=== PATIENT | female | born 1965 | race American Indian/Alaskan Native ===

== ENCOUNTER 2017-01-11 10:46 | Emergency (ER) | payer OTHER ==
[2017-01-11] MEDS ORDERED: MORPHINE IV ONE (11:38)
[2017-01-11] MEDS ORDERED: ZOFRAN IV ONE (11:38)
[2017-01-11] MEDS ORDERED: BABY ASPIRIN PO ONE (11:45)
--- NOTE | 2017-01-11 11:45 | Emergency Department Report ---
ED Chest Pain HPI - General Chief Complaint: Chest Pain Stated Complaint: CHEST PAIN Time Seen by Provider: 01/11/17 11:30 Source: patient Mode of arrival: Ambulatory Limitations: No Limitations - History of Present Illness Initial Comments: CHEST PAIN AND LEFT LEG SWELLING. H/O BLOOD CLOTS Complaint: chest pain -: Gradual, week(s) (ONE ) Onset: during rest Pain Location: substernal Severity scale (0 -10): 7 Quality: tightness Improves With: nothing Other Symptoms: denies: cough, fever Treatments Prior to Arrival: none - Related Data Home Medications Medication Instructions Recorded Confirmed Last Taken Phenytoin [Dilantin] 300 mg PO QDAY 04/08/16 01/11/17 Unknown Previous Rx's Medication Instructions Recorded Last Taken Type Gabapentin [Gralise] 300 mg PO DAILY #30 tab.er.24h 04/09/16 Unknown Rx Losartan [Cozaar] 100 mg PO QDAY #300 tablet 04/09/16 Unknown Rx carBAMazepine [TEGretol] 300 mg PO QDAY #30 tablet 04/09/16 Unknown Rx Ondansetron [Zofran Odt] 4 mg PO Q8HR PRN #14 tab.rapdis 01/11/17 Unknown Rx traMADol [Ultram] 50 mg PO Q6HR PRN #14 tablet 01/11/17 Unknown Rx Allergies Allergy/AdvReac Type Severity Reaction Status Date / Time Penicillins Allergy Swelling Verified 05/20/13 15:21 Heart Score - HEART Score History: Moderately suspicious EKG: Non-specific Age: 45-65 Risk factors: 1-2 risk factors Troponin: < normal limit HEART Score: 4 - Critical Actions Critical Actions: 4-6 pts:12-16.6% risk of adverse cardiac event. Should be admitted ED Review of Systems ROS: Stated complaint: CHEST PAIN Other details as noted in HPI Comment: All other systems reviewed and negative Constitutional: denies: chills, fever Respiratory: shortness of breath. denies: cough, orthopnea Cardiovascular: chest pain. denies: palpitations Gastrointestinal: abdominal pain. denies: nausea, vomiting Musculoskeletal: arthralgia, myalgia Neurological: denies: headache, weakness, numbness, paresthesias, confusion ED Past Medical Hx - Past Medical History Previous Medical History?: Yes Hx Hypertension: Yes Hx Deep Vein Thrombosis: Yes Hx Seizures: Yes Hx Psychiatric Treatment: Yes Hx COPD: Yes Additional medical history: aneurysm - Surgical History Past Surgical History?: Yes Additional Surgical History: aneurysm clip, hysterectomy - Social History Smoking Status: Unknown if ever smoked Substance Use Type: None - Medications Home Medications: Home Medications Medication Instructions Recorded Confirmed Last Taken Type Phenytoin [Dilantin] 300 mg PO QDAY 04/08/16 01/11/17 Unknown History Gabapentin [Gralise] 300 mg PO DAILY #30 tab.er.24h 04/09/16 01/11/17 Unknown Rx Losartan [Cozaar] 100 mg PO QDAY #300 tablet 04/09/16 01/11/17 Unknown Rx carBAMazepine [TEGretol] 300 mg PO QDAY #30 tablet 04/09/16 01/11/17 Unknown Rx Ondansetron [Zofran Odt] 4 mg PO Q8HR PRN #14 tab.rapdis 01/11/17 Unknown Rx traMADol [Ultram] 50 mg PO Q6HR PRN #14 tablet 01/11/17 Unknown Rx ED Physical Exam - General Limitations: No Limitations General appearance: alert - Head Head exam: Present: atraumatic - Eye Eye exam: Present: normal appearance - ENT ENT exam: Present: normal exam - Neck Neck exam: Present: normal inspection, full ROM. Absent: tenderness, meningismus, lymphadenopathy - Respiratory Respiratory exam: Present: normal lung sounds bilaterally. Absent: rales, rhonchi, stridor, chest wall tenderness, accessory muscle use - Cardiovascular Cardiovascular Exam: Present: regular rate, normal heart sounds - GI/Abdominal GI/Abdominal exam: Present: soft. Absent: distended, tenderness, guarding, rebound - Extremities Exam Extremities exam: Present: normal inspection, full ROM - Back Exam Back exam: Present: normal inspection, full ROM. Absent: tenderness - Neurological Exam Neurological exam: Present: alert, oriented X3, CN II-XII intact, normal gait, reflexes normal. Absent: motor sensory deficit - Psychiatric Psychiatric exam: Present: normal affect, normal mood. Absent: depressed - Skin Skin exam: Present: warm, dry ED Course Vital Signs 01/11/17 01/11/17 01/11/17 11:03 11:55 13:05 Temperature 98.4 F Pulse Rate 79 62 66 Respiratory 20 18 18 Rate Blood Pressure 180/120 Blood Pressure 205/121 181/116 [Left] O2 Sat by Pulse 100 100 100 Oximetry 01/11/17 14:49 Temperature Pulse Rate 60 Respiratory 18 Rate Blood Pressure Blood Pressure 183/103 [Left] O2 Sat by Pulse 97 Oximetry - Reevaluation(s) Reevaluation #1: 01/11/17 16:38 PATIENT IS PAIN FREE. ADVISED TO FOLLOW UP WITH HER PCP IN 2 DAYS ED Medical Decision Making - Lab Data Result diagrams: 01/11/17 12:10 01/11/17 12:10 Critical care attestation.: If time is entered above; I have spent that time in minutes in the direct care of this critically ill patient, excluding procedure time. ED Disposition Clinical Impression: Chest pain, atypical, Left leg pain Disposition: DC- TO HOME OR SELFCARE Is pt being admited?: No Does the pt Need Aspirin: No Condition: Stable Instructions: Chest Pain (ED) Prescriptions: Ondansetron [Zofran Odt] 4 mg PO Q8HR PRN #14 tab.rapdis PRN Reason: Vomiting traMADol [Ultram] 50 mg PO Q6HR PRN #14 tablet PRN Reason: Pain
[2017-01-11] MEDS ORDERED: NACL ONE (12:39)
[2017-01-11 12:42] LABS: Basophils % (Auto) 1.2 % (0.0-1.8); Eosinophils % (Auto) 2.8 % (0.0-4.3); Hematocrit 38.8 % (30.3-42.9); Hemoglobin 11.9 gm/dl (10.1-14.3); Mean Corpuscular HGB Conc 31 % (30-34); Mean Corpuscular Volume 73 fl (79-97); Platelet Count 134 K/mm3 (140-440); Red Blood Count 5.34 M/mm3 (3.65-5.03); Red Cell Distribution Width 16.7 % (13.2-15.2); White Blood Count 5.6 K/mm3 (4.5-11.0)
[2017-01-11 12:43] LABS: Mean Corpuscular Hemoglobin 22 pg (28-32)
[2017-01-11 12:51] LABS: Partial Thromboplastin Time 23.9 Sec. (24.2-36.6)
[2017-01-11 13:14] LABS: Anion Gap 20 mmol/L; BUN/Creatinine Ratio 11.42; Blood Urea Nitrogen 8 mg/dL (7-17); Calcium 8.7 mg/dL (8.4-10.2); Carbon Dioxide 20 mmol/L (22-30); Chloride 102.7 mmol/L (98-107); Glucose 86 mg/dL (65-100); Potassium 4.1 mmol/L (3.6-5.0); Sodium 139 mmol/L (137-145)
--- NOTE | 2017-01-11 14:35 | Cat Scan Report ---
FINAL REPORT PROCEDURE: CT ANGIO CHEST TECHNIQUE: Computerized tomographic angiography of the chest was performed after the IV injection of iodinated nonionic contrast including image processing. The image data was postprocessed using 2-dimensional multiplanar reformatted (MPR) and 3-dimensional (MIP and/or volume rendered) techniques. HISTORY: CHEST PAIN, H/O PE COMPARISON: No prior studies are available for comparison. FINDINGS: Mild hypoventilatory changes are seen in the dependent portions of the lungs. No pleural effusion or pneumothorax is seen. More focal alveolar opacity is seen at the right CP angle laterally with tiny focal calcification. This is likely area of atelectasis with a granuloma. Likely mild reactive lymph nodes are seen in the mediastinum and bilateral jeannie. Mild reactive lymph nodes are suspected in the axillae. Heart is top normal limits in size without pulmonary venous congestion. There is prominence of the ascending thoracic aorta which measures 4.1 cm in its mid ascending section. It tapers in the mid arch to normal diameter. It is not well enhanced due to timing of contrast bolus. No pulmonary embolus is seen. There is a 2.7 cm left adrenal lesion that measures 0 Hounsfield units. This could be a solid lesion or possibly a cyst. Correlation with MRI is recommended. 6 millimeter low-density lesion in the right hepatic lobe is probably a cyst. There is cholelithiasis. IMPRESSION: There is mild dilation of the ascending thoracic aorta to 4.1 cm in diameter No pulmonary embolus is seen. Heart is top normal limits in size. There is a 2.7 cm left adrenal lesion that measures 0 Hounsfield units. This could be a solid lesion or possibly a cyst. Correlation with MRI is recommended. Likely mild reactive lymph nodes are seen in the mediastinum, jeannie, and axillae.
[2017-01-11 15:54] LABS: Bacteria,Urine 1+ /HPF (Negative); Bilirubin,Urine NEG (Negative); Blood,Urine NEG (Negative); Ketones,Urine NEG (Negative); Leukocyte Esterase,Urine NEG (Negative); Mucus,Urine 1+ /HPF; Nitrite,Urine NEG (Negative); Protein,Urine <15 mg/dL mg/dL (Negative); WBC,Urine < 1.0 /HPF (0.0-6.0)
[2017-01-11 16:41] LABS: Alanine Aminotransferase 14 units/L (7-56); Albumin/Globulin Ratio 1.3 %; Alkaline Phosphatase 76 units/L (35-129); Total Protein 7.2 g/dL (6.3-8.2)
[2017-01-11 16:42] LABS: Bilirubin,Direct < 0.2 mg/dL (0-0.2); Bilirubin,Indirect 0.3 mg/dL
[2017-01-11 17:01] VITALS: BP 160/100
--- NOTE | 2017-01-12 08:30 | Vascular Lab Report ---
Left Lower Extremity Venous Duplex Study: Reason for Exam: Pain and swelling of the left lower extremity. Comments on the Right: A limited duplex study was done of the proximal veins of the right lower extremity. All veins visualized are freely compressible without evidence of internal echogenicity. Flow is spontaneous and phasic throughout. No evidence of acute or chronic thrombus is seen in any of the vessels visualized. Comments on the Left: All deep veins visualized are freely compressible without evidence of internal echogenicity. Flow is spontaneous and phasic throughout. No evidence of acute or chronic thrombus is seen in any of the vessels visualized. Nonocclusive chronic superficial thrombophlebitis noted in the greater saphenous vein. Impression: No evidence of acute or chronic deep venous thrombosis in the left lower extremity. Chronic superficial thrombophlebitis in the left lower extremity.
== END 2017-01-11 17:00 | disposition home or self-care (01) ==
LOC: ED 10:46
DX: R07.89 Other chest pain (principal); M79.605 Pain in left leg; I10 Essential (primary) hypertension; I82.409 Acute embolism and thrombosis of unspecified deep veins of unspecified lower extremity; R56.9 Unspecified convulsions; J44.9 Chronic obstructive pulmonary disease, unspecified; Z88.0 Allergy status to penicillin
CPT/HCPCS: 36415; 71275; 80048; 80074; 81001; 83880; 84484; 85025; 85379; 85610; 85730; 93005; 93010; 93971; 96374; 96375; 99285; J2270; J2405; Q9967

== ENCOUNTER 2017-02-21 10:45 | Emergency (ER) | payer OTHER ==
[2017-02-21] MEDS ORDERED: DUONEB *Not for PRN Use IH ONE ×2 (11:03→11:05)
[2017-02-21 11:36] LABS: Basophils % (Auto) 1.7 % (0.0-1.8); Eosinophils % (Auto) 4.8 % (0.0-4.3); Hematocrit 38.1 % (30.3-42.9); Mean Corpuscular HGB Conc 32 % (30-34); Mean Corpuscular Volume 72 fl (79-97); Platelet Count 129 K/mm3 (140-440); Red Blood Count 5.28 M/mm3 (3.65-5.03); Red Cell Distribution Width 16.2 % (13.2-15.2); White Blood Count 5.3 K/mm3 (4.5-11.0)
[2017-02-21 11:47] LABS: Anion Gap 18 mmol/L; Blood Urea Nitrogen 9 mg/dL (7-17); Calcium 8.6 mg/dL (8.4-10.2); Carbon Dioxide 22 mmol/L (22-30); Chloride 105.2 mmol/L (98-107); Glucose 93 mg/dL (65-100); Sodium 141 mmol/L (137-145)
[2017-02-21 11:54] LABS: Mean Corpuscular Hemoglobin 23 pg (28-32)
[2017-02-21] MEDS ORDERED: MAGNESIUM SULFATE 2GM/50ML 2 GM/50 ML BAG IV ONE (12:50)
[2017-02-21] MEDS ORDERED: ATROVENT IH ONE (12:50)
[2017-02-21] MEDS ORDERED: TESSALON PERLES PO ONE ×3 (12:50→17:11)
[2017-02-21] MEDS ORDERED: NORCO 5/325 PO ONE (12:50)
[2017-02-21] MEDS ORDERED: PROVENTIL IH ONE (12:50)
[2017-02-21] MEDS ORDERED: CATAPRES PO ONE (12:50)
--- NOTE | 2017-02-21 13:12 | XRay Report ---
CHEST TWO VIEWS: 02/21/17 11:25 CLINICAL: Shortness of breath. COMPARISON: 04/08/16 FINDINGS: Normal heart and pulmonary vasculature. The lungs are normally expanded and clear. The bones and soft tissues are normal. IMPRESSION: Normal chest.
[2017-02-21] MEDS ORDERED: KEPPRA 1,000 MG/NS 0.75% 100ML 1,000 MG/100 ML BAG IV ONE (14:00)
[2017-02-21] MEDS ORDERED: KEPPRA 1,000 MG/NS 0.75% 100ML 0 MG/0 ML BAG IV ONE (14:15)
--- NOTE | 2017-02-21 15:21 | Emergency Department Report ---
ED Shortness of Breath HPI - General Chief Complaint: Adult Asthma Stated Complaint: CHEST PAIN/BODYACHE/ASTHMA Time Seen by Provider: 02/21/17 12:44 Source: patient Mode of arrival: Ambulatory Limitations: No Limitations - History of Present Illness Initial Comments: 51 yo female with a past medical history of COPD (no home o2), previous DVT (no anticoagulation currently), hypertension, seizures, and previous cerebral aneurysm presents also complains of shortness of breath 3 days. Patient had a shortness of breath, wheezing, cough productive of thick brown sputum. Positive associated 8/10 chest tightness.. Patient denies fever but states she has been sweating more. Noncompliant with her blood pressure medication for at least one month because she has missed her doctor's appointments. - Related Data Previous Rx's Medication Instructions Recorded Last Taken Type Ondansetron [Zofran Odt] 4 mg PO Q8HR PRN #14 tab.rapdis 01/11/17 Unknown Rx traMADol [Ultram] 50 mg PO Q6HR PRN #14 tablet 01/11/17 Unknown Rx ALBUTEROL Inhaler [ProAir HFA 2 puff IH QID PRN #1 inhalation 02/21/17 Unknown Rx Inhaler] Azithromycin [Zithromax Z-GARCIA] 1 dose PO DAILY 5 Days 02/21/17 Unknown Rx Benzonatate [Tessalon Perles] 100 mg PO Q8HR PRN #30 capsule 02/21/17 Unknown Rx Gabapentin [Gralise] 300 mg PO DAILY #30 tab.er.24h 02/21/17 Unknown Rx Losartan [Cozaar] 100 mg PO QDAY #300 tablet 02/21/17 Unknown Rx Phenytoin [Dilantin] 300 mg PO QDAY #90 capsule.er 02/21/17 Unknown Rx Prednisone [predniSONE 10 mg 10 mg PO .TAPER #1 tab.ds.pk 02/21/17 Unknown Rx (6-Day Pack, 21 Tabs)] carBAMazepine [TEGretol] 300 mg PO QDAY #30 tablet 02/21/17 Unknown Rx Allergies Allergy/AdvReac Type Severity Reaction Status Date / Time Penicillins Allergy Swelling Verified 05/20/13 15:21 ED Review of Systems ROS: Stated complaint: CHEST PAIN/BODYACHE/ASTHMA Other details as noted in HPI Comment: All other systems reviewed and negative Other: Constitutional: No fevers chills Eyes: No eye pain visual changes ENT: No ear pain or throat pain Neck: Denies pain Respiratory: As per HPI Cardiovascular: Denies palpitations, syncope GI: Denies abdominal pain, nausea, vomiting, diarrhea : Denies dysuria Musculoskeletal: Denies back pain, joint swelling Skin: Denies rash, lesions, erythema Neurologic: Denies headache, numbness, weakness Psychiatric: Denies suicidal ideation, hallucinations ED Past Medical Hx - Past Medical History Previous Medical History?: Yes Hx Hypertension: Yes Hx Deep Vein Thrombosis: Yes Hx Seizures: Yes Hx Psychiatric Treatment: Yes Hx COPD: Yes Additional medical history: aneurysm - Surgical History Past Surgical History?: Yes Additional Surgical History: aneurysm clip, hysterectomy - Social History Smoking Status: Current Every Day Smoker Substance Use Type: Alcohol - Medications Home Medications: Home Medications Medication Instructions Recorded Confirmed Last Taken Type Ondansetron [Zofran Odt] 4 mg PO Q8HR PRN #14 tab.rapdis 01/11/17 Unknown Rx traMADol [Ultram] 50 mg PO Q6HR PRN #14 tablet 01/11/17 Unknown Rx ALBUTEROL Inhaler [ProAir HFA 2 puff IH QID PRN #1 inhalation 02/21/17 Unknown Rx Inhaler] Azithromycin [Zithromax Z-GARCIA] 1 dose PO DAILY 5 Days 02/21/17 Unknown Rx Benzonatate [Tessalon Perles] 100 mg PO Q8HR PRN #30 capsule 02/21/17 Unknown Rx Gabapentin [Gralise] 300 mg PO DAILY #30 tab.er.24h 02/21/17 Unknown Rx Losartan [Cozaar] 100 mg PO QDAY #300 tablet 02/21/17 Unknown Rx Phenytoin [Dilantin] 300 mg PO QDAY #90 capsule.er 02/21/17 Unknown Rx Prednisone [predniSONE 10 mg 10 mg PO .TAPER #1 tab.ds.pk 02/21/17 Unknown Rx (6-Day Pack, 21 Tabs)] carBAMazepine [TEGretol] 300 mg PO QDAY #30 tablet 02/21/17 Unknown Rx ED Physical Exam - General Limitations: No Limitations - Other Other exam information: General: No limitations, patient is alert in no acute distress Head exam: Atraumatic, normocephalic Eyes exam: Normal appearance ENT: Moist mucous membrane, normal oropharynx Neck exam: Normal inspection, full range of motion, no meningismus nontender Respiratory exam: Bilateral exudative wheezing, mild tachypnea and accessory muscle use Cardiovascular: Normal rate and rhythm, normal heart sounds Abdomen: Soft, nondistended, and nontender, with normal bowel sounds, no rebound, or guarding Extremity: Full range of motion normal inspection no deformity, tenderness or edema Back: Normal Inspection, full range of motion, no tenderness Neurologic: Alert, oriented x3, cranial nerves intact, no motor or sensory deficit Psychiatric: normal affect, normal mood Skin: Warm, dry, intact ED Course Vital Signs 02/21/17 02/21/17 02/21/17 10:57 11:07 12:31 Temperature 98.5 F 98.5 F Pulse Rate 74 74 Pulse Rate [ Anterior Bilateral Throughout] Pulse Rate [ 74 Posterior Bilateral Throughout] Respiratory 30 H 26 H Rate Respiratory Rate [Anterior Bilateral Throughout] Respiratory 24 Rate [Posterior Bilateral Throughout] Blood Pressure 161/130 Blood Pressure 185/117 [Left] O2 Sat by Pulse 100 Oximetry 02/21/17 02/21/17 02/21/17 12:34 12:55 13:40 Temperature Pulse Rate 76 Pulse Rate [ 76 Anterior Bilateral Throughout] Pulse Rate [ Posterior Bilateral Throughout] Respiratory Rate Respiratory 18 Rate [Anterior Bilateral Throughout] Respiratory Rate [Posterior Bilateral Throughout] Blood Pressure 187/95 Blood Pressure [Left] O2 Sat by Pulse 99 Oximetry 02/21/17 13:55 Temperature Pulse Rate Pulse Rate [ Anterior Bilateral Throughout] Pulse Rate [ 71 Posterior Bilateral Throughout] Respiratory Rate Respiratory Rate [Anterior Bilateral Throughout] Respiratory 18 Rate [Posterior Bilateral Throughout] Blood Pressure Blood Pressure [Left] O2 Sat by Pulse Oximetry - Reevaluation(s) Reevaluation #1: 02/21/17 14:00 Patient's had a seizure in the ED. Dilantin level ordered. Keppra initiated while awaiting results Reevaluation #2: 02/21/17 15:26 Dilantin ordered since level is sub-therapeutic Reevaluation #3: 02/21/17 15:55 Patient is awake. She feels better. Lungs are clear. Room air saturation 100% . Patient requesting food.Instructed the patient. She admits to be noncompliant with all her medications including seizure medication. She'll be loaded with Dilantin prior to discharge ED Medical Decision Making - Lab Data Result diagrams: 02/21/17 11:14 02/21/17 11:14 Lab Results 02/21/17 02/21/17 02/21/17 Range/Units 11:08 11:14 11:14 WBC 5.3 (4.5-11.0) K/mm3 RBC 5.28 H (3.65-5.03) M/mm3 Hgb 12.0 (10.1-14.3) gm/dl Hct 38.1 (30.3-42.9) % MCV 72 L (79-97) fl MCH 23 L (28-32) pg MCHC 32 (30-34) % RDW 16.2 H (13.2-15.2) % Plt Count 129 L (140-440) K/mm3 Lymph % (Auto) 44.2 H (13.4-35.0) % Pope % (Auto) 11.1 H (0.0-7.3) % Eos % (Auto) 4.8 H (0.0-4.3) % Baso % (Auto) 1.7 (0.0-1.8) % Lymph # 2.3 (1.2-5.4) K/mm3 Pope # 0.6 (0.0-0.8) K/mm3 Eos # 0.3 (0.0-0.4) K/mm3 Baso # 0.1 (0.0-0.1) K/mm3 Seg Neutrophils % 38.2 L (40.0-70.0) % Seg Neutrophils # 2.0 (1.8-7.7) K/mm3 Sodium 141 (137-145) mmol/L Potassium 4.0 (3.6-5.0) mmol/L Chloride 105.2 (98-107) mmol/L Carbon Dioxide 22 (22-30) mmol/L Anion Gap 18 mmol/L BUN 9 (7-17) mg/dL Creatinine 0.6 L (0.7-1.2) mg/dL Estimated GFR > 60 ml/min BUN/Creatinine Ratio 15.00 % Glucose 93 (65-100) mg/dL POC Glucose 74 (70-105) Calcium 8.6 (8.4-10.2) mg/dL Troponin T < 0.010 (0.00-0.029) ng/mL Phenytoin (10.0-20.0) mg/L 02/21/17 Range/Units 14:13 WBC (4.5-11.0) K/mm3 RBC (3.65-5.03) M/mm3 Hgb (10.1-14.3) gm/dl Hct (30.3-42.9) % MCV (79-97) fl MCH (28-32) pg MCHC (30-34) % RDW (13.2-15.2) % Plt Count (140-440) K/mm3 Lymph % (Auto) (13.4-35.0) % Pope % (Auto) (0.0-7.3) % Eos % (Auto) (0.0-4.3) % Baso % (Auto) (0.0-1.8) % Lymph # (1.2-5.4) K/mm3 Pope # (0.0-0.8) K/mm3 Eos # (0.0-0.4) K/mm3 Baso # (0.0-0.1) K/mm3 Seg Neutrophils % (40.0-70.0) % Seg Neutrophils # (1.8-7.7) K/mm3 Sodium (137-145) mmol/L Potassium (3.6-5.0) mmol/L Chloride (98-107) mmol/L Carbon Dioxide (22-30) mmol/L Anion Gap mmol/L BUN (7-17) mg/dL Creatinine (0.7-1.2) mg/dL Estimated GFR ml/min BUN/Creatinine Ratio % Glucose (65-100) mg/dL POC Glucose (70-105) Calcium (8.4-10.2) mg/dL Troponin T (0.00-0.029) ng/mL Phenytoin 0.8 L (10.0-20.0) mg/L - EKG Data -: EKG Interpreted by Me (sinus rhythm 74 lateral T inversion) - EKG Data When compared to previous EKG there are: no significant change (compared to ) - Radiology Data Radiology results: report reviewed (chest ray: No acute findings) - Medical Decision Making Hypertension: Patient received clonidine with improvement. Patient has been noncompliant Seizure: IV Keppra and IV Dilantin. Patient has been noncompliant COPD exacerbation: Albuterol, Atrovent, same measure, and magnesium. Tessalon Perles for cough and azithromycin, Z-Garcia prescribed Meds to be refill, follow-up encouraged - Differential Diagnosis pneumonia, bronchitis, asthma, COPD, hypertensive emergency, medication com Critical Care Time: No Critical care attestation.: If time is entered above; I have spent that time in minutes in the direct care of this critically ill patient, excluding procedure time. ED Disposition Clinical Impression: COPD with acute bronchitis, Hypertension, uncontrolled, Seizure, Noncompliance with medication regimen Disposition: TO HOME OR SELFCARE Is pt being admited?: No Does the pt Need Aspirin: No Condition: Stable Instructions: Acute Bronchitis (ED), Hypertension (ED), Recurrent Seizures Adult (ED) Additional Instructions: Take the medications as prescribed. Follow-up with your primary care doctor. Return if symptoms worsen Prescriptions: ALBUTEROL Inhaler [ProAir HFA Inhaler] 2 puff IH QID PRN #1 inhalation PRN Reason: Shortness Of Breath Azithromycin [Zithromax Z-GARCIA] 1 dose PO DAILY 5 Days Benzonatate [Tessalon Perles] 100 mg PO Q8HR PRN #30 capsule PRN Reason: Cough carBAMazepine [TEGretol] 300 mg PO QDAY #30 tablet Gabapentin [Gralise] 300 mg PO DAILY #30 tab.er.24h Losartan [Cozaar] 100 mg PO QDAY #300 tablet Phenytoin [Dilantin] 300 mg PO QDAY #90 capsule.er Prednisone [predniSONE 10 mg (6-Day Pack, 21 Tabs)] 10 mg PO .TAPER #1 tab.ds.pk Referrals: PRIMARY CARE,MD [Primary Care Provider] - 3-5 Days Time of Disposition: 15:59 (d/c after dilantin)
[2017-02-21] MEDS ORDERED: DILANTIN 1,000 MG in NACL 0.9% 250ML 250 ML IV ONE (16:00)
[2017-02-21 16:20] VITALS: BP 154/95
[2017-02-21] MEDS ORDERED: NACL 0.9% 100 ML ONE (16:26)
[2017-02-21] MEDS ORDERED: DILANTIN PO ONE (16:50)
== END 2017-02-21 17:30 | disposition home or self-care (01) ==
LOC: ED 10:45
DX: J44.9 Chronic obstructive pulmonary disease, unspecified (principal); J20.9 Acute bronchitis, unspecified; I10 Essential (primary) hypertension; R56.9 Unspecified convulsions; Z91.14 Patient's other noncompliance with medication regimen; F17.200 Nicotine dependence, unspecified, uncomplicated
CPT/HCPCS: 36415; 71020; 80048; 80185; 82962; 84484; 85025; 93005; 93010; 94640; 96365; 96367; 96375; 99284; J1165; J1953; J2930; J3475; J7050

== ENCOUNTER 2017-05-26 10:04 | Inpatient (IN) | payer OTHER ==
--- NOTE | 2017-05-26 10:48 | Emergency Department Report ---
Chief Complaint: Chest Pain Stated Complaint: CHEST TIGHTNESS Time Seen by Provider: 05/26/17 10:47 - HPI History of Present Illness: Patient reported that she's been having chest tightness and body ache 4 days. Patient report wheezing and with shortness of breath. She states that she did nebulizer treatment at home without any relief. Patient has a history of asthma ,COPD, DVT, hypertension mental health disorder and seizures also has medical history of aneurysm. She said her chest feels tight it is 4 out of 10 she is complaining of coughing and the pain is worse with coughing. Denies any history of heart disease. - ROS Review of Systems: All systems are negative unless stated in HPI above - Exam Vital Signs: Vital Signs 05/26/17 10:18 Temperature 98.7 F Pulse Rate 97 H Respiratory 24 Rate Blood Pressure 151/90 O2 Sat by Pulse 98 Oximetry Physical Exam: Gen.: This is a 52-year-old female well-nourished well-developed nontoxic in appearance. Lungs:congested cough, positive rhonchi to lung harris that clear with coughing. Inspiratory and expiratory wheezing. Normal work of breathing Extremity: No clubbing, cyanosis or edema. CV: S1, S2. Regular rate rhythm negative murmur MSE screening note: Focused history and physical exam performed. Due to findings the following was ordered: ED Medical Decision Making - Medical Decision Making MDM: Patient screened by provider in triage area. Appropriate protocol initiated and patient to be seen in main ED by ED Disposition for MSE Condition: Stable
[2017-05-26 11:08] LABS: Basophils % (Auto) 1.6 % (0.0-1.8); Eosinophils % (Auto) 4.6 % (0.0-4.3); Hematocrit 39.2 % (30.3-42.9); Hemoglobin 12.3 gm/dl (10.1-14.3); Mean Corpuscular HGB Conc 31 % (30-34); Mean Corpuscular Volume 73 fl (79-97); Platelet Count 146 K/mm3 (140-440); Red Blood Count 5.41 M/mm3 (3.65-5.03); Red Cell Distribution Width 15.7 % (13.2-15.2); White Blood Count 6.2 K/mm3 (4.5-11.0)
[2017-05-26 11:16] LABS: Mean Corpuscular Hemoglobin 23 pg (28-32)
[2017-05-26 11:17] LABS: Anion Gap 19 mmol/L; BUN/Creatinine Ratio 13; Blood Urea Nitrogen 8 mg/dL (7-17); Calcium 8.7 mg/dL (8.4-10.2); Carbon Dioxide 24 mmol/L (22-30); Chloride 106.4 mmol/L (98-107); Glucose 78 mg/dL (65-100); Sodium 145 mmol/L (137-145)
[2017-05-26 11:35] LABS: Partial Thromboplastin Time 24.2 Sec. (24.2-36.6)
[2017-05-26 11:50] LABS: Creatine Kinase MB 9.1 ng/mL (0.0-4.0)
--- NOTE | 2017-05-26 11:57 | Cat Scan Report ---
Cranial CT without contrast. History: Acute stroke protocol/ Weakness. Findings: Comparison is made to previous study performed on April 08, 2016. There is a subcentimeter hypodensity in the head of the caudate nucleus on the right. This is best seen on image #22 of series 2. There is no associated hemorrhage. A metallic density, probably representing an aneurysm clip is seen in the right parasellar region with associated streak artifact. Postsurgical changes in the right calvarium are stable. There are no masses or extra-axial collections. The posterior fossa is unremarkable. The ventricles are normal. Impression: 1. Subcentimeter hypodensity in the right head of the caudate nucleus. This has similar density to CSF and may be chronic. It is difficult to exclude an acute or subacute lacunar infarct. Clinical correlation is advised. 2. Stable postsurgical changes as described. Comment: These findings were given by phone to Dr. Bhatti at 11:55 AM on May 26.
--- NOTE | 2017-05-26 12:32 | Emergency Department Report ---
ED General Adult HPI - General Chief complaint: Chest Pain Stated complaint: CHEST TIGHTNESS Time Seen by Provider: 05/26/17 10:47 Source: patient Mode of arrival: Ambulatory Limitations: No Limitations - History of Present Illness Initial comments: Patient presented to triage with a history of "chest tightness and body aches 4 days. She was wheezing and on my encounter stated that she is using her home inhalers without benefit. She has history of asthma/COPD. Apparently, she was somehow confused on arrival and a code stroke was called. In addition a mental health counselor was called as patient perhaps wasn't acting right. On my counter the mental health counselor was in the room. She stated that she felt the patient did not have any addressable mental health issues. I agree the patient has presented for medical complaints. In any case there is no evidence for an acute stroke workup continued. Patient was apparently wheezing and nebs and steroids and magnesium was ordered. -: week(s) Location: chest Radiation: non-radiation Quality: other Consistency: intermittent Improves with: none Worsens with: none Associated Symptoms: other (tightness associated with wheezing) Treatments Prior to Arrival: none - Related Data Home Medications Medication Instructions Recorded Confirmed Last Taken Acetaminophen with Codeine 1 each PO Q6HR PRN 05/26/17 05/26/17 Unknown [Acetaminophen-Codeine #2 TAB] Hydrochlorothiazide [HCTZ] 25 mg PO QDAY 05/26/17 05/26/17 Unknown amLODIPine [Norvasc] 5 mg PO DAILY 05/26/17 05/26/17 Unknown tiZANidine [Zanaflex] 4 mg PO TID PRN 05/26/17 05/26/17 Unknown Previous Rx's Medication Instructions Recorded Last Taken Type ALBUTEROL Inhaler [ProAir HFA 2 puff IH QID PRN #1 inhalation 02/21/17 Unknown Rx Inhaler] Phenytoin [Dilantin] 300 mg PO QDAY #90 capsule.er 02/21/17 Unknown Rx Allergies Allergy/AdvReac Type Severity Reaction Status Date / Time Penicillins Allergy Swelling Verified 05/20/13 15:21 ED Review of Systems ROS: Stated complaint: CHEST TIGHTNESS Other details as noted in HPI Constitutional: denies: chills, fever Eyes: denies: eye pain, eye discharge, vision change ENT: denies: ear pain, throat pain Respiratory: cough (nonproductive), shortness of breath, wheezing Cardiovascular: as per HPI, chest pain. denies: palpitations Endocrine: no symptoms reported Gastrointestinal: denies: abdominal pain, nausea, diarrhea Genitourinary: denies: urgency, dysuria, discharge Musculoskeletal: denies: back pain, joint swelling, arthralgia Skin: denies: rash, lesions Neurological: denies: headache, weakness, paresthesias Psychiatric: denies: anxiety, depression Hematological/Lymphatic: denies: easy bleeding, easy bruising ED Past Medical Hx - Past Medical History Previous Medical History?: Yes Hx Hypertension: Yes Hx Deep Vein Thrombosis: Yes Hx Seizures: Yes Hx Psychiatric Treatment: Yes Hx COPD: Yes Additional medical history: aneurysm - Surgical History Past Surgical History?: Yes Additional Surgical History: aneurysm clip, hysterectomy - Social History Smoking Status: Current Every Day Smoker Substance Use Type: None - Medications Home Medications: Home Medications Medication Instructions Recorded Confirmed Last Taken Type ALBUTEROL Inhaler [ProAir HFA 2 puff IH QID PRN #1 inhalation 02/21/17 05/26/17 Unknown Rx Inhaler] Phenytoin [Dilantin] 300 mg PO QDAY #90 capsule.er 02/21/17 05/26/17 Unknown Rx Acetaminophen with Codeine 1 each PO Q6HR PRN 05/26/17 05/26/17 Unknown History [Acetaminophen-Codeine #2 TAB] Hydrochlorothiazide [HCTZ] 25 mg PO QDAY 05/26/17 05/26/17 Unknown History amLODIPine [Norvasc] 5 mg PO DAILY 05/26/17 05/26/17 Unknown History tiZANidine [Zanaflex] 4 mg PO TID PRN 05/26/17 05/26/17 Unknown History ED Physical Exam - General Limitations: No Limitations General appearance: alert, in no apparent distress - Head Head exam: Present: atraumatic, normocephalic - Eye Eye exam: Present: normal appearance, PERRL, EOMI. Absent: scleral icterus - ENT ENT exam: Present: mucous membranes moist - Neck Neck exam: Present: normal inspection. Absent: tenderness, meningismus - Respiratory Respiratory exam: Present: wheezes (bilateral 1-2+). Absent: respiratory distress, accessory muscle use - Cardiovascular Cardiovascular Exam: Present: regular rate, normal rhythm. Absent: systolic murmur, diastolic murmur, rubs, gallop - GI/Abdominal GI/Abdominal exam: Present: soft, normal bowel sounds. Absent: distended, tenderness, guarding, rebound, rigid - Extremities Exam Extremities exam: Present: normal inspection - Back Exam Back exam: Present: normal inspection - Neurological Exam Neurological exam: Present: alert, oriented X3, CN II-XII intact, other (acute focal deficit). Absent: motor sensory deficit - Psychiatric Psychiatric exam: Present: normal mood, flat affect - Skin Skin exam: Present: warm, dry, intact, normal color. Absent: rash ED Course Vital Signs 05/26/17 05/26/17 10:18 12:00 Temperature 98.7 F Pulse Rate 97 H 70 Respiratory 24 19 Rate Blood Pressure 151/90 177/120 O2 Sat by Pulse 98 100 Oximetry - Reevaluation(s) Reevaluation #1: The patient was given nebs with improvement. Arterial blood gas was ordered but she refused this. Her CT head showed nothing acute. She has previous aneurysm clip. She has not had an elevated d-dimer. CTA was ordered. There was a problem with her IV access initially and she was sent back from radiology. A new line was placed that was fully functional. She was sent back to CT. However at CT she refused the exam because she stated that the contrast made her feel funny. I reported the presentation of the patient to Dr. Luciano of [place]. He agreed the patient needed to be admitted. He stated that [facility] did not have beds and authorized admission to this facility. I discussed case with Dr. Bowling. I'm going to leave it to his discretion to continue the workup for the elevated d- dimer with a VQ scan or as he deems appropriate. I'm going to hold off on anticoagulation as the patient had previous aneurysm clipping. While in. Anticoagulation may be appropriate leave that to Dr. Bowling's discretion. 05/26/17 17:28 ED Medical Decision Making - Lab Data Result diagrams: 05/26/17 10:25 05/26/17 10:25 Laboratory Results - last 24 hr 05/26/17 05/26/17 05/26/17 10:25 10:25 10:25 WBC 6.2 RBC 5.41 H Hgb 12.3 Hct 39.2 MCV 73 L MCH 23 L MCHC 31 RDW 15.7 H Plt Count 146 Lymph % (Auto) 46.5 H Harper % (Auto) 9.0 H Eos % (Auto) 4.6 H Baso % (Auto) 1.6 Lymph # 2.9 Harper # 0.6 Eos # 0.3 Baso # 0.1 Seg Neutrophils % 38.3 L Seg Neutrophils # 2.4 PT INR APTT D-Dimer Sodium 145 Potassium 4.0 Chloride 106.4 Carbon Dioxide 24 Anion Gap 19 BUN 8 Creatinine 0.6 L Estimated GFR > 60 BUN/Creatinine Ratio 13 Glucose 78 POC Glucose Calcium 8.7 Total Creatine Kinase 336 H CK-MB (CK-2) 9.1 H CK-MB (CK-2) Rel Index 2.7 Troponin T 0.017 05/26/17 05/26/17 11:04 11:28 WBC RBC Hgb Hct MCV MCH MCHC RDW Plt Count Lymph % (Auto) [place] % (Auto) Eos % (Auto) Baso % (Auto) Lymph # Harper # Eos # Baso # Seg Neutrophils % Seg Neutrophils # PT 13.7 INR 1.00 APTT 24.2 D-Dimer 971.71 H Sodium Potassium Chloride Carbon Dioxide Anion Gap BUN Creatinine Estimated GFR BUN/Creatinine Ratio Glucose POC Glucose 86 Calcium Total Creatine Kinase CK-MB (CK-2) CK-MB (CK-2) Rel Index Troponin T Laboratory Results - last 24 hr 05/26/17 05/26/17 05/26/17 10:25 10:25 10:25 WBC 6.2 RBC 5.41 H Hgb 12.3 Hct 39.2 MCV 73 L MCH 23 L MCHC 31 RDW 15.7 H Plt Count 146 Lymph % (Auto) 46.5 H Harper % (Auto) 9.0 H Eos % (Auto) 4.6 H Baso % (Auto) 1.6 Lymph # 2.9 Harper # 0.6 Eos # 0.3 Baso # 0.1 Seg Neutrophils % 38.3 L Seg Neutrophils # 2.4 PT INR APTT D-Dimer Sodium 145 Potassium 4.0 Chloride 106.4 Carbon Dioxide 24 Anion Gap 19 BUN 8 Creatinine 0.6 L Estimated GFR > 60 BUN/Creatinine Ratio 13 Glucose 78 POC Glucose Calcium 8.7 Total Creatine Kinase 336 H CK-MB (CK-2) 9.1 H CK-MB (CK-2) Rel Index 2.7 Troponin T 0.017 05/26/17 05/26/17 11:04 11:28 WBC RBC Hgb Hct MCV MCH MCHC RDW Plt Count Lymph % (Auto) Harper % (Auto) Eos % (Auto) Baso % (Auto) Lymph # Harper # Eos # Baso # Seg Neutrophils % Seg Neutrophils # PT 13.7 INR 1.00 APTT 24.2 D-Dimer 971.71 H Sodium Potassium Chloride Carbon Dioxide Anion Gap BUN Creatinine Estimated GFR BUN/Creatinine Ratio Glucose POC Glucose 86 Calcium Total Creatine Kinase CK-MB (CK-2) CK-MB (CK-2) Rel Index Troponin T Critical care attestation.: If time is entered above; I have spent that time in minutes in the direct care of this critically ill patient, excluding procedure time. ED Disposition Clinical Impression: COPD exacerbation, Elevated d-dimer Chest pain Qualifiers: Chest pain type: unspecified Qualified Code(s): R07.9 - Chest pain, unspecified Disposition: -09 OP ADMIT IP TO THIS HOSP Is pt being admited?: Yes Does the pt Need Aspirin: Yes Condition: Stable Instructions: Chest Pain (ED), Chronic Bronchitis (ED) Referrals: PRIMARY CARE, [Primary Care Provider] - 3-5 Days Time of Disposition: 17:36
--- NOTE | 2017-05-26 12:37 | XRay Report ---
XRAY CHEST TWO VIEWS: 05/26/17 10:04:00 CLINICAL: Cough and chest pain. COMPARISON: 02/21/17 FINDINGS: Normal heart and pulmonary vasculature. Mild bibasal subsegmental atelectasis. The lungs are otherwise clear.The bones and soft tissues are unremarkable. IMPRESSION: Mild bibasal subsegmental atelectasis.No CHF or pneumonia.
[2017-05-26] MEDS ORDERED: DUONEB *Not for PRN Use IH ONE (12:40)
[2017-05-26] MEDS ORDERED: MAGNESIUM SULFATE 2GM/50ML 2 GM/50 ML BAG IV ONE (12:41)
[2017-05-26] MEDS ORDERED: LEVAQUIN 750MG/150ML 750 MG/150 ML BAG IV ONE (12:43)
[2017-05-26 13:30] LABS: Partial Thromboplastin Time 24.7 Sec. (24.2-36.6)
[2017-05-26 13:43] LABS: Alanine Aminotransferase 17 units/L (7-56); Albumin 3.6 g/dL (3.9-5); Albumin/Globulin Ratio 1.1 %; Alkaline Phosphatase 63 units/L (35-129); Total Protein 6.8 g/dL (6.3-8.2)
[2017-05-26] MEDS ORDERED: NACL ONE (13:43)
[2017-05-26 13:44] LABS: Bilirubin,Direct < 0.2 mg/dL (0-0.2); Bilirubin,Indirect 0.1 mg/dL
[2017-05-26 13:49] LABS: Urine Drugs of Abuse Note Disclamer
[2017-05-26 14:14] LABS: Bilirubin,Urine NEG (Negative); Blood,Urine NEG (Negative); Ketones,Urine NEG (Negative); Leukocyte Esterase,Urine NEG (Negative); Mucus,Urine 3+ /HPF; Nitrite,Urine NEG (Negative); Protein,Urine <15 mg/dL mg/dL (Negative); WBC,Urine < 1.0 /HPF (0.0-6.0)
[2017-05-26] MEDS ORDERED: BABY ASPIRIN PO ONE (17:36)
--- NOTE | 2017-05-26 18:02 | History and Physical Report ---
History of Present Illness Chief complaint: Chest pain, I cant breathe History of present illness: 52 YO Female with HTN, DVT, Seizure Disorder, Nicotine Dependence, COPD presents to ED for evaluation. Pt states that she has experienced pain in her chest, shortness of breath, and body aches over the past 4 days with worsening symptoms over the past 2 days. Pt state that pain is 2-5/10, intermittent, associated with shortness of breath and coughing, worse with deep breathing. Pt states that she has experienced body aches, and a sore throat as well. Pt denies fever, chills, palpitation, recent ill contacts. Pt seen and evaluated in ED and found to have symptoms consistent with ACS, as well as COPD exacerbation, and D dimer elevation. Pt was admitted for further care and evaluation. Past History Past Medical History: COPD, DVT, hypertension, seizures, other (Nicotine Dependence) Past Surgical History: hysterectomy, Other (brain surgery) Social history: , lives with family, smoking. denies: alcohol abuse Family history: hypertension Medications and Allergies Allergies Allergy/AdvReac Type Severity Reaction Status Date / Time Penicillins Allergy Swelling Verified 05/20/13 15:21 Home Medications Medication Instructions Recorded Confirmed Last Taken Type ALBUTEROL Inhaler [ProAir HFA 2 puff IH QID PRN #1 inhalation 02/21/17 05/26/17 Unknown Rx Inhaler] Phenytoin [Dilantin] 300 mg PO QDAY #90 capsule.er 02/21/17 05/26/17 Unknown Rx Acetaminophen with Codeine 1 each PO Q6HR PRN 05/26/17 05/26/17 Unknown History [Acetaminophen-Codeine #2 TAB] Hydrochlorothiazide [HCTZ] 25 mg PO QDAY 05/26/17 05/26/17 Unknown History amLODIPine [Norvasc] 5 mg PO DAILY 05/26/17 05/26/17 Unknown History tiZANidine [Zanaflex] 4 mg PO TID PRN 05/26/17 05/26/17 Unknown History Review of Systems Constitutional: no weight loss, no weight gain, no fever, no chills Ears, nose, mouth and throat: sore throat, no ear pain, no ear discharge, no tinnitis, no decreased hearing, no nose pain, no nasal congestion Cardiovascular: chest pain, shortness of breath, no orthopnea, no palpitations, no dyspnea on exertion, no paroxysmal nocturnal dyspnea, no leg edema Respiratory: cough, no cough with sputum, no excessive sputum, no hemoptysis Gastrointestinal: no abdominal pain, no nausea, no vomiting, no diarrhea, no constipation Genitourinary Female: no pelvic pain, no flank pain, no dysuria, no urinary frequency, no urgency Rectal: no pain, no incontinence, no bleeding Musculoskeletal: no neck stiffness, no neck pain, no shooting arm pain, no arm numbness/tingling, no low back pain Integumentary: no rash, no pruritis, no redness, no sores, no wounds Neurological: no transient paralysis, no paralysis, no weakness, no parathesias , no numbness, no tingling Psychiatric: no anxiety, no memory loss, no change in sleep habits, no sleep disturbances, no insomnia, no hypersomnia, no change in appetite Endocrine: no cold intolerance, no heat intolerance, no polyphagia, no excessive thirst, no polydipsia, no polyuria, no nocturia Hematologic/Lymphatic: no easy bruising, no easy bleeding Allergic/Immunologic: no urticaria, no allergic rhinitis, no wheezing Exam - Constitutional Vitals: Temp Pulse Resp BP Pulse Ox 98.7 F 70 19 177/120 100 05/26/17 10:18 05/26/17 12:00 05/26/17 12:00 05/26/17 12:00 05/26/17 12:00 General appearance: Present: mild distress - EENT Eyes: Present: PERRL ENT: hearing intact, clear oral mucosa - Neck Neck: Present: supple, normal ROM - Respiratory Respiratory effort: labored Respiratory: bilateral: diminished, wheezing - Cardiovascular Heart Sounds: Present: S1 & S2. Absent: rub, click - Extremities Extremities: pulses symmetrical, No edema Peripheral Pulses: within normal limits - Abdominal General gastrointestinal: Present: soft, non-tender, non-distended, normal bowel sounds Female genitourinary: Present: normal - Integumentary Integumentary: Present: clear, warm, dry - Musculoskeletal Musculoskeletal: gait normal, strength equal bilaterally - Psychiatric Psychiatric: appropriate mood/affect, intact judgment & insight - Neurologic Neurologic: CNII-XII intact, moves all extremities Results - Labs CBC & Chem 7: 05/26/17 10:25 05/26/17 10:25 Labs: Abnormal lab results 05/26/17 05/26/17 05/26/17 Range/Units 10:25 10:25 10:25 RBC 5.41 H (3.65-5.03) M/mm3 MCV 73 L (79-97) fl MCH 23 L (28-32) pg RDW 15.7 H (13.2-15.2) % Lymph % (Auto) 46.5 H (13.4-35.0) % [place] % (Auto) 9.0 H (0.0-7.3) % Eos % (Auto) 4.6 H (0.0-4.3) % Seg Neutrophils % 38.3 L (40.0-70.0) % D-Dimer (0-234) ng/mlDDU Creatinine 0.6 L (0.7-1.2) mg/dL Total Creatine Kinase 336 H (30-135) units/L CK-MB (CK-2) 9.1 H (0.0-4.0) ng/mL Albumin (3.9-5) g/dL 05/26/17 05/26/17 Range/Units 11:04 12:48 RBC (3.65-5.03) M/mm3 MCV (79-97) fl MCH (28-32) pg RDW (13.2-15.2) % Lymph % (Auto) (13.4-35.0) % [place] % (Auto) (0.0-7.3) % Eos % (Auto) (0.0-4.3) % Seg Neutrophils % (40.0-70.0) % D-Dimer 971.71 H (0-234) ng/mlDDU Creatinine (0.7-1.2) mg/dL Total Creatine Kinase (30-135) units/L CK-MB (CK-2) (0.0-4.0) ng/mL Albumin 3.6 L (3.9-5) g/dL Assessment and Plan - Patient Problems (1) ACS (acute coronary syndrome) Current Visit: Yes Status: Acute Plan to address problem: chest Pain protocol: Serial cardiac enzymes, ekg, telemetry, Echo, stress test, d dimer, supplemental oxygen, nebs, moprhine, aspirin, nitro, cardiology consulted, (2) COPD with exacerbation Current Visit: Yes Status: Acute Plan to address problem: Supplemental oxygen, nebs, steroids, aspiration precautions, pulmonary toilet, (3) Acute respiratory failure Current Visit: Yes Status: Acute Plan to address problem: Supplemental oxygen, nebs, d dimer, CT angio chest, NIPPV as clinically indicated, (4) Seizure Current Visit: Yes Status: Acute Plan to address problem: Resume dilantin, supportive care, neuro checks, aspiration precautions (5) DVT prophylaxis Current Visit: Yes Status: Acute
[2017-05-26] MEDS ORDERED: SODIUM CHLORIDE FLUSH SYRINGE 10 ML IV PRN (18:08)
[2017-05-26] MEDS ORDERED: DULCOLAX PR PRN (18:08)
[2017-05-26] MEDS ORDERED: PROVENTIL IH PRN (18:08)
[2017-05-26] MEDS ORDERED: MILK OF MAGNESIA PO PRN (18:08)
[2017-05-26] MEDS ORDERED: NITROSTAT SL PRN (18:08)
[2017-05-26] MEDS ORDERED: TYLENOL PO PRN (18:08)
[2017-05-26] MEDS ORDERED: ZOFRAN IV PRN (18:08)
[2017-05-26] MEDS ORDERED: ZANAFLEX PO PRN (18:12)
[2017-05-26 18:41] VITALS: BP 163/94
[2017-05-26] MEDS ORDERED: PEPCID PO SCH (22:00)
[2017-05-27] MEDS ORDERED: HCTZ PO SCH (10:00)
[2017-05-27] MEDS ORDERED: NORVASC PO SCH (10:00)
[2017-05-27] MEDS ORDERED: DILANTIN PO SCH (10:00)
== END 2017-05-26 19:32 | disposition left against medical advice (07) | DRG 189 ==
LOC: ED 10:04 → 4A 18:08
PROVIDERS: ADMIT Internal Medicine; ATTEND Internal Medicine
DX: J96.00 Acute respiratory failure, unspecified whether with hypoxia or hypercapnia (principal); I24.9 Acute ischemic heart disease, unspecified; J44.1 Chronic obstructive pulmonary disease with (acute) exacerbation; I10 Essential (primary) hypertension; Z53.21 Procedure and treatment not carried out due to patient leaving prior to being seen by health care provider; F17.200 Nicotine dependence, unspecified, uncomplicated; G40.909 Epilepsy, unspecified, not intractable, without status epilepticus; Z82.49 Family history of ischemic heart disease and other diseases of the circulatory system; Z88.0 Allergy status to penicillin; Z90.710 Acquired absence of both cervix and uterus; Z86.718 Personal history of other venous thrombosis and embolism
CPT/HCPCS: 36415; 70450; 71020; 80048; 80074; 80307; 81001; 82140; 82550; 82553; 82962; 83735; 83880; 84484; 85025; 85379; 85610; 85730; 86850; 86900; 86901; 87040; 87086; 93005; 93010; 96365; 96366; 96375; J1956; J2930; J3475

== ENCOUNTER 2019-01-03 10:39 | Emergency (ER) | payer OTHER ==
--- NOTE | 2019-01-03 11:50 | XRay Report ---
CHEST 1 VIEW INDICATION: chest pain. COMPARISON: None. FINDINGS: Support devices: None. Heart: Normal. Lungs/Pleura: Mild increased interstitial markings may be atelectatic. No consolidation, significant effusion, or pneumothorax. IMPRESSION: 1. Mild interstitial markings may be atelectatic but are nonspecific. No consolidation. Signer Name: Elvis Ferreira MD Signed: 01/03/2019 11:45 AM Workstation Name: [id number]
--- NOTE | 2019-01-03 11:50 | Emergency Department Report ---
ED Extremity Problem HPI - General Chief complaint: Chest Pain Stated complaint: RT HAND SWELLING/FEET PAIN Time Seen by Provider: 01/03/19 11:45 Source: patient Mode of arrival: Ambulatory Limitations: No Limitations - History of Present Illness Initial comments: 53-year-old female presents to ED with complaint of right hand pain for a of couple weeks. Patient reports history of gout. He reports swelling to the hand. Also reports pain to the bottom of the bilateral feet, denies swelling. 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 Patient states she does not feel the need to be worked up for her chest pain because it was not very serious. Patient is more concerned about her right hand pain and swelling. MD Complaint: extremity pain, extremity swelling -: week(s) (3) Location: right, upper extremity History of Same: Yes Radiation: distal Quality: aching Consistency: constant Improves with: immobilization Worsens with: palpation - Related Data Home Medications Medication Instructions Recorded Confirmed Last Taken Acetaminophen with Codeine 1 each PO Q6HR PRN 05/26/17 05/26/17 Unknown [Acetaminophen-Codeine #2 TAB] amLODIPine [Norvasc] 5 mg PO DAILY 05/26/17 05/26/17 Unknown hydroCHLOROthiazide [HCTZ] 25 mg PO QDAY 05/26/17 05/26/17 Unknown tiZANidine [Zanaflex] 4 mg PO TID PRN 05/26/17 05/26/17 Unknown Previous Rx's Medication Instructions Recorded Last Taken Type ALBUTEROL Inhaler (OR & NICU) 2 puff IH QID PRN #1 inhalation 02/21/17 Unknown Rx [ProAir HFA Inhaler] Phenytoin [Dilantin] 300 mg PO QDAY #90 capsule.er 02/21/17 Unknown Rx Naproxen [Naprosyn] 500 mg PO BID #20 tablet 01/03/19 Unknown Rx predniSONE [Deltasone] 50 mg PO QDAY #5 tab 01/03/19 Unknown Rx traMADol [Ultram] 50 mg PO Q6HR PRN #7 tablet 01/03/19 Unknown Rx Allergies Allergy/AdvReac Type Severity Reaction Status Date / Time Penicillins Allergy Swelling Verified 05/20/13 15:21 ED Review of Systems ROS: Stated complaint: RT HAND SWELLING/FEET PAIN Other details as noted in HPI Comment: All other systems reviewed and negative Constitutional: denies: chills, fever Respiratory: denies: shortness of breath Cardiovascular: chest pain Musculoskeletal: joint swelling, arthralgia Neurological: denies: weakness, numbness ED Past Medical Hx - Past Medical History Previous Medical History?: Yes Hx Hypertension: Yes Hx Congestive Heart Failure: Yes Hx Deep Vein Thrombosis: Yes Hx Seizures: Yes Hx Psychiatric Treatment: Yes Hx COPD: Yes Additional medical history: aneurysm - Surgical History Past Surgical History?: Yes Additional Surgical History: aneurysm clip, hysterectomy - Social History Smoking Status: Current Every Day Smoker Substance Use Type: None - Medications Home Medications: Home Medications Medication Instructions Recorded Confirmed Last Taken Type ALBUTEROL Inhaler (OR & NICU) 2 puff IH QID PRN #1 inhalation 02/21/17 05/26/17 Unknown Rx [ProAir HFA Inhaler] Phenytoin [Dilantin] 300 mg PO QDAY #90 capsule.er 02/21/17 05/26/17 Unknown Rx Acetaminophen with Codeine 1 each PO Q6HR PRN 05/26/17 05/26/17 Unknown History [Acetaminophen-Codeine #2 TAB] amLODIPine [Norvasc] 5 mg PO DAILY 05/26/17 05/26/17 Unknown History hydroCHLOROthiazide [HCTZ] 25 mg PO QDAY 05/26/17 05/26/17 Unknown History tiZANidine [Zanaflex] 4 mg PO TID PRN 05/26/17 05/26/17 Unknown History Naproxen [Naprosyn] 500 mg PO BID #20 tablet 01/03/19 Unknown Rx predniSONE [Deltasone] 50 mg PO QDAY #5 tab 01/03/19 Unknown Rx traMADol [Ultram] 50 mg PO Q6HR PRN #7 tablet 01/03/19 Unknown Rx ED Physical Exam - General Limitations: No Limitations General appearance: alert, in no apparent distress - Head Head exam: Present: atraumatic, normocephalic - Eye Eye exam: Present: normal appearance, PERRL, EOMI - ENT ENT exam: Present: mucous membranes moist - Neck Neck exam: Present: normal inspection - Respiratory Respiratory exam: Present: normal lung sounds bilaterally. Absent: respiratory distress - Cardiovascular Cardiovascular Exam: Present: regular rate, normal rhythm - GI/Abdominal GI/Abdominal exam: Present: soft. Absent: distended, tenderness - Extremities Exam Extremities exam: Present: other (tenderness to rightwrist and hand with mild s welling present, no erythema). Absent: pedal edema, calf tenderness - Neurological Exam Neurological exam: Present: alert, oriented X3. Absent: motor sensory deficit - Psychiatric Psychiatric exam: Present: normal affect, normal mood - Skin Skin exam: Present: warm, dry, intact, normal color ED Course Vital Signs 01/03/19 10:51 Temperature 98.0 F Pulse Rate 70 Respiratory 15 Rate Blood Pressure 173/108 [Left] O2 Sat by Pulse 96 Oximetry ED Medical Decision Making - Lab Data Result diagrams: 01/03/19 11:52 01/03/19 11:52 - EKG Data -: EKG Interpreted by Me EKG shows normal: sinus rhythm, axis, intervals, QRS complexes Rate: normal - EKG Data Interpretation: nonspecific ST-T wave lady - Radiology Data Radiology results: report reviewed, image reviewed Critical care attestation.: If time is entered above; I have spent that time in minutes in the direct care of this critically ill patient, excluding procedure time. ED Disposition Clinical Impression: Pain and swelling of right wrist, Right hand pain, Atypical chest pain Disposition: DC-01 TO HOME OR SELFCARE Is pt being admited?: No Condition: Stable Instructions: Acute Gouty Arthritis (ED), Osteoarthritis (ED), Chest Pain (ED) Referrals: MARKY OLIVAS MD [Primary Care Provider] - 3-5 Days
[2019-01-03 12:07] LABS: Hematocrit 36.2 % (30.3-42.9); Hemoglobin 11.4 gm/dl (10.1-14.3); Mean Corpuscular HGB Conc 32 % (30-34); Mean Corpuscular Volume 71 fl (79-97); Platelet Count 142 K/mm3 (140-440); Red Blood Count 5.08 M/mm3 (3.65-5.03); Red Cell Distribution Width 17.4 % (13.2-15.2)
[2019-01-03 12:30] LABS: BUN/Creatinine Ratio 13; Blood Urea Nitrogen 10 mg/dL (7-17); Calcium 8.8 mg/dL (8.4-10.2); Hemolysis Index 6
[2019-01-03] MEDS ORDERED: ULTRAM PO ONE (12:38)
[2019-01-03 12:59] VITALS: BP 163/98
== END 2019-01-03 13:05 | disposition home or self-care (01) ==
LOC: ED 10:39
DX: M10.041 Idiopathic gout, right hand (principal); R07.89 Other chest pain; I11.0 Hypertensive heart disease with heart failure; F17.200 Nicotine dependence, unspecified, uncomplicated; J44.9 Chronic obstructive pulmonary disease, unspecified; Z86.718 Personal history of other venous thrombosis and embolism; Z90.710 Acquired absence of both cervix and uterus; Z88.0 Allergy status to penicillin
CPT/HCPCS: 36415; 71045; 80048; 83880; 84484; 85027; 93005; 93010

== ENCOUNTER 2019-03-28 14:18 | Emergency (ER) | payer BC ==
--- NOTE | 2019-03-28 14:29 | Emergency Department Report ---
Blank Doc - Documentation Documentation: 53-year-old female that presents with chest pain, SOB, and headaches. Also sta te has bilateral hand swelling. This initial assessment/diagnostic orders/clinical plan/treatment(s) is/are subject to change based on patient's health status, clinical progression and re-assessment by fellow clinical providers in the ED. Further treatment and workup at subsequent clinical providers discretion. Patient/guardians urged not to elope from the ED as their condition may be serious if not clinically assessed and managed. Initial orders include: 1- Patient sent to [facility] for further evaluation and treatment 2- EKG 3- CXR 4- Labs
[2019-03-28 15:07] LABS: Basophils # (Auto) 0.1 K/mm3 (0.0-0.1); Basophils % (Auto) 1.5 % (0.0-1.8); Eosinophils # (Auto) 0.2 K/mm3 (0.0-0.4); Eosinophils % (Auto) 4.2 % (0.0-4.3); Hemoglobin 12.8 gm/dl (10.1-14.3); Lymphocytes # (Auto) 2.3 K/mm3 (1.2-5.4); Mean Corpuscular HGB Conc 31 % (30-34); Mean Corpuscular Volume 72 fl (79-97); Monocytes # (Auto) 0.4 K/mm3 (0.0-0.8); Monocytes % (Auto) 8.1 % (0.0-7.3); Red Blood Count 5.68 M/mm3 (3.65-5.03); Red Cell Distribution Width 15.7 % (13.2-15.2)
[2019-03-28 15:12] LABS: Platelet Count 135 K/mm3 (140-440)
--- NOTE | 2019-03-28 15:28 | Cat Scan Report ---
CT head/brain wo con INDICATION / CLINICAL INFORMATION: 53 years Female; headache. TECHNIQUE: Routine CT head without contrast. All CT scans at this location are performed using CT dos e reduction for ALARA by means of automated exposure control. COMPARISON: None FINDINGS: BRAIN / INTRACRANIAL CONTENTS: The patient is status post right frontotemporal craniotomy with aneury sm clip positioned along the right suprasellar region. There is an old infarct along the anterior rig ht basal ganglia. There are otherwise a scattered areas of decreased attenuation along the subcortica l regions most consistent with microvascular angiopathy. There is no CT evidence of acute intracrania l hemorrhage. The ventricular system is appropriate in size and configuration. CRANIOCERVICAL JUNCTION: No significant abnormality. ORBITS: No significant abnormality of visualized orbits. SINUSES / MASTOIDS: No significant abnormality the visualized paranasal sinuses or mastoid air cells. ADDITIONAL FINDINGS: None. IMPRESSION: 1. Status post right frontotemporal craniotomy with aneurysm clip. 2. 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 3. There is otherwise mild to moderate microvascular angiopathy without CT evidence of acute intracra nial hemorrhage. Signer Name: Tevin Santos MD Signed: 03/28/2019 3:24 PM Workstation Name: [id number]
[2019-03-28 15:37] LABS: Alanine Aminotransferase 17 units/L (7-56); Albumin 3.6 g/dL (3.9-5); BUN/Creatinine Ratio 17; Blood Urea Nitrogen 12 mg/dL (7-17); Calcium 8.7 mg/dL (8.4-10.2); Hemolysis Index 6
--- NOTE | 2019-03-28 15:55 | XRay Report ---
CHEST 2 VIEWS INDICATION: Chest Pain. COMPARISON: 01/03/2019 FINDINGS: Support devices: None. Heart: Within normal limits. Pulmonary vasculature: Prominent central pulmonary vessels unchanged since the last exam. Lungs/pleura: Prominent bilateral interstitial markings unchanged compared to the previous exam. No p ulmonary consolidation. No pleural effusion. No pneumothorax. Additional findings: None. IMPRESSION: No CHF or pneumonia. Chronic interstitial changes. Signer Name: Reuben Henson MD Signed: 03/28/2019 3:51 PM Workstation Name: [id number]
[2019-03-28] MEDS ORDERED: HYDROcodone/ACETAMINOPHEN 10-325MG TAB PO ONE (16:29)
[2019-03-28 16:59] LABS: INR 1.1 (0.87-1.13)
[2019-03-28 19:54] VITALS: BP 181/118
== END 2019-03-28 19:47 | disposition left against medical advice (07) ==
LOC: ED 14:18
DX: R07.89 Other chest pain (principal); Z53.21 Procedure and treatment not carried out due to patient leaving prior to being seen by health care provider
CPT/HCPCS: 36415; 70450; 71046; 80053; 83880; 84484; 85025; 85610; 85730; 93005; 93010

== ENCOUNTER 2019-05-26 11:54 | Emergency (ER) | payer BC ==
--- NOTE | 2019-05-26 12:03 | Emergency Department Report ---
Blank Doc - Documentation Documentation: 54-year-old female with PMH is CHF, COPD, and DVT presents with CP and SOB. This initial assessment/diagnostic orders/clinical plan/treatment(s) is/are subject to change based on patient's health status, clinical progression and re- assessment by fellow clinical providers in the ED. Further treatment and workup at subsequent clinical providers discretion. Patient/guardians urged not to elope from the ED as their condition may be serious if not clinically assessed and managed. Initial orders include: 1- Patient sent to [facility] ED for further evaluation and treatment 2- EKG 3- labs 4- CXR
--- NOTE | 2019-05-26 12:45 | XRay Report ---
CHEST 2 VIEWS INDICATION: Chest Pain. COMPARISON: 03/28/2019 FINDINGS: Support devices: None. Heart: Heart size appears borderline. Lungs/pleura: No acute air space or interstitial disease. No pneumothorax. Additional findings: None. IMPRESSION: Borderline heart size. Lungs clear. Signer Name: Ian Petty Jr, MD Signed: 05/26/2019 12:41 PM Workstation Name: [id number]
[2019-05-26 12:56] LABS: Basophils # (Auto) 0.1 K/mm3 (0.0-0.1); Basophils % (Auto) 2.3 % (0.0-1.8); Eosinophils # (Auto) 0.2 K/mm3 (0.0-0.4); Eosinophils % (Auto) 2.5 % (0.0-4.3); Hematocrit 41.7 % (30.3-42.9); Hemoglobin 13.3 gm/dl (10.1-14.3); Lymphocytes # (Auto) 2.2 K/mm3 (1.2-5.4); Lymphocytes % (Auto) 35.6 % (13.4-35.0); Mean Corpuscular HGB Conc 32 % (30-34); Mean Corpuscular Volume 71 fl (79-97); Monocytes # (Auto) 0.4 K/mm3 (0.0-0.8); Monocytes % (Auto) 6.9 % (0.0-7.3); Platelet Count 138 K/mm3 (140-440); Red Blood Count 5.88 M/mm3 (3.65-5.03); Red Cell Distribution Width 16.2 % (13.2-15.2)
[2019-05-26 13:04] LABS: INR 1.18 (0.87-1.13)
[2019-05-26 13:05] LABS: Partial Thromboplastin Time 24.1 Sec. (24.2-36.6)
[2019-05-26 13:12] LABS: Alanine Aminotransferase 18 units/L (7-56); Albumin 3.6 g/dL (3.9-5); BUN/Creatinine Ratio 14; Blood Urea Nitrogen 14 mg/dL (7-17); Calcium 9.2 mg/dL (8.4-10.2); Hemolysis Index 5
[2019-05-26] MEDS ORDERED: ALBUTEROL 2.5 MG/3 ML NEBU IH ONE (14:24)
[2019-05-26] MEDS ORDERED: IPRATROPIUM 0.02% NEBU 2.5 ML IH ONE (14:24)
--- NOTE | 2019-05-26 14:24 | Emergency Department Report ---
ED Chest Pain HPI - General Chief Complaint: Chest Pain Stated Complaint: CHEST PAIN/ASTHMA Time Seen by Provider: 05/26/19 12:02 Source: patient Mode of arrival: Ambulatory Limitations: No Limitations - History of Present Illness Initial Comments: 54 yo F w/ hx of seizures, asthma, CHF, DVT, presents to ED with complaint of chest pain. Pt reports midsternal chest pain, intermittent x 2 weeks. She reports associated cough and shortness of breath. Believes pain may be due to her asthma, however she does not have an inhaler currently. Denies fever. Denies lower extremity pain and swelling. Patient reports she has been off all her medications for at least 1 year since moving to [place] a year ago. Patient states she has not seen a physician since moving to [place]. Patient reports tobacco use. MD Complaint: chest pain -: week(s) (2) Onset: during rest Pain Location: substernal Pain Radiation: none Severity scale (0 -10): 8 Quality: tightness Consistency: intermittent Improves With: nothing Worsens With: nothing re: dyspnea. denies: nausea, vomting Other Symptoms: cough. denies: fever, leg swelling - Related Data Home Medications Medication Instructions Recorded Confirmed Last Taken Acetaminophen with Codeine 1 each PO Q6HR PRN 05/26/17 05/26/17 Unknown [Acetaminophen-Codeine #2 TAB] amLODIPine [Norvasc] 5 mg PO DAILY 05/26/17 05/26/17 Unknown hydroCHLOROthiazide [HCTZ] 25 mg PO QDAY 05/26/17 05/26/17 Unknown tiZANidine [Zanaflex] 4 mg PO TID PRN 05/26/17 05/26/17 Unknown Previous Rx's Medication Instructions Recorded Last Taken Type ALBUTEROL Inhaler (OR & NICU) 2 puff IH QID PRN #1 inhalation 02/21/17 Unknown Rx [ProAir HFA Inhaler] Phenytoin [Dilantin] 300 mg PO QDAY #90 capsule.er 02/21/17 Unknown Rx Naproxen [Naprosyn] 500 mg PO BID #20 tablet 01/03/19 Unknown Rx predniSONE [Deltasone] 50 mg PO QDAY #5 tab 01/03/19 Unknown Rx traMADoL [Ultram] 50 mg PO Q6HR PRN #7 tablet 01/03/19 Unknown Rx Albuterol Sulfate [Proventil Hfa] 2 puff IH Q4HR PRN #1 hfa.aer.ad 05/26/19 Unknown Rx Benzonatate [Tessalon Perles] 100 mg PO Q8HR PRN #20 capsule 05/26/19 Unknown Rx Phenytoin [Dilantin] 100 mg PO Q8HR #100 capsule 05/26/19 Unknown Rx predniSONE [Deltasone] 50 mg PO QDAY #5 tab 05/26/19 Unknown Rx Allergies Allergy/AdvReac Type Severity Reaction Status Date / Time Penicillins Allergy Swelling Verified 05/20/13 15:21 Heart Score - HEART Score History: Slightly suspicious EKG: Non-specific Age: 45-65 Risk factors: 1-2 risk factors Troponin: < normal limit HEART Score: 3 ED Review of Systems ROS: Stated complaint: CHEST PAIN/ASTHMA/SEIZURES Other details as noted in HPI Comment: All other systems reviewed and negative Constitutional: denies: chills, fever Respiratory: cough, shortness of breath, wheezing Cardiovascular: chest pain Gastrointestinal: denies: nausea, vomiting Musculoskeletal: other (denies leg pain or swelling) ED Past Medical Hx - Past Medical History Previous Medical History?: Yes Hx Hypertension: Yes Hx Congestive Heart Failure: Yes Hx Deep Vein Thrombosis: Yes Hx Seizures: Yes Hx Psychiatric Treatment: Yes Hx COPD: Yes Additional medical history: aneurysm - Surgical History Past Surgical History?: Yes Additional Surgical History: aneurysm clip, hysterectomy - Social History Smoking Status: Current Every Day Smoker - Medications Home Medications: Home Medications Medication Instructions Recorded Confirmed Last Taken Type ALBUTEROL Inhaler (OR & NICU) 2 puff IH QID PRN #1 inhalation 02/21/17 05/26/17 Unknown Rx [ProAir HFA Inhaler] Phenytoin [Dilantin] 300 mg PO QDAY #90 capsule.er 02/21/17 05/26/17 Unknown Rx Acetaminophen with Codeine 1 each PO Q6HR PRN 05/26/17 05/26/17 Unknown History [Acetaminophen-Codeine #2 TAB] amLODIPine [Norvasc] 5 mg PO DAILY 05/26/17 05/26/17 Unknown History hydroCHLOROthiazide [HCTZ] 25 mg PO QDAY 05/26/17 05/26/17 Unknown History tiZANidine [Zanaflex] 4 mg PO TID PRN 05/26/17 05/26/17 Unknown History Naproxen [Naprosyn] 500 mg PO BID #20 tablet 01/03/19 Unknown Rx predniSONE [Deltasone] 50 mg PO QDAY #5 tab 01/03/19 Unknown Rx traMADoL [Ultram] 50 mg PO Q6HR PRN #7 tablet 01/03/19 Unknown Rx Albuterol Sulfate [Proventil Hfa] 2 puff IH Q4HR PRN #1 hfa.aer.ad 05/26/19 Unknown Rx Benzonatate [Tessalon Perles] 100 mg PO Q8HR PRN #20 capsule 05/26/19 Unknown Rx Phenytoin [Dilantin] 100 mg PO Q8HR #100 capsule 05/26/19 Unknown Rx predniSONE [Deltasone] 50 mg PO QDAY #5 tab 05/26/19 Unknown Rx ED Physical Exam - General Limitations: No Limitations General appearance: alert, in no apparent distress - Head Head exam: Present: atraumatic, normocephalic - Eye Eye exam: Present: normal appearance - ENT ENT exam: Present: mucous membranes moist - Neck Neck exam: Present: normal inspection - Respiratory Respiratory exam: Present: wheezes, chest wall tenderness. Absent: respiratory distress - Cardiovascular Cardiovascular Exam: Present: regular rate, normal rhythm - GI/Abdominal GI/Abdominal exam: Present: soft. Absent: distended, tenderness - Extremities Exam Extremities exam: Present: normal inspection. Absent: pedal edema, calf tenderness - Neurological Exam Neurological exam: Present: alert, oriented X3 - Psychiatric Psychiatric exam: Present: normal affect, normal mood - Skin Skin exam: Present: warm, dry, intact, normal color ED Course Vital Signs 05/26/19 05/26/19 05/26/19 12:02 12:49 13:39 Temperature 98.2 F Pulse Rate 81 74 71 Pulse Rate [ Bilateral Middle Lobe] Pulse Rate [ Right Lower Lobe] Respiratory 20 17 20 Rate Respiratory Rate [Bilateral Middle Lobe] Respiratory Rate [Right Lower Lobe] Blood Pressure 174/113 Blood Pressure 150/98 122/95 [Left] O2 Sat by Pulse 99 96 96 Oximetry 05/26/19 05/26/19 05/26/19 14:00 14:54 16:25 Temperature Pulse Rate 80 78 Pulse Rate [ 80 Bilateral Middle Lobe] Pulse Rate [ 74 Right Lower Lobe] Respiratory 17 17 Rate Respiratory 18 Rate [Bilateral Middle Lobe] Respiratory 18 Rate [Right Lower Lobe] Blood Pressure Blood Pressure 122/83 122/80 169/110 [Left] O2 Sat by Pulse 96 95 Oximetry - Consultations Consultation #1: 05/26/19 17:46 Spoke w/ Dr Aris Rosales. Pt does not need any emergent attention for the thoracic aortic aneurysm. ED Medical Decision Making - Lab Data Result diagrams: 05/26/19 12:41 05/26/19 12:41 - EKG Data -: EKG Interpreted by Me EKG shows normal: sinus rhythm, axis, intervals, QRS complexes, ST-T waves Rate: normal - EKG Data Interpretation: no acute changes - Radiology Data Radiology results: report reviewed, image reviewed - Medical Decision Making 54-year-old female with COPD exacerbation. Chest pain workup was done, including workup for PE, given patient's history of DVT and the fact that she has been followed for medications 1 year. D-dimer was elevated and CTA Chest was ordered. While in CT pt had seizure-like episode. Upon my arrival, pt was alert and not postictal. This appeared to be a pseudoseizure in my opinion. She does report a hx of seizures and has been noncompliant w/ her dilantin. Pt returned to her baseline. CT found to be negative for PE, however, it did show an ascending thoracic aortic aneurysm without dissection. I spoke with Dr. Aris Rosales, vascular, states no emergent intervention necessary at this time due to its size. Patient was informed of this finding and given outpatient referral information. Following nebulizer treatment, patient feeling much better. Has chest tenderness on exam. Troponin is negative 2. EKG shows no ST changes. Will discharge home. Outpatient follow-up advised. Return precautions given. - Differential Diagnosis COPD, ACS, PE, pneumonia Critical care attestation.: If time is entered above; I have spent that time in minutes in the direct care of this critically ill patient, excluding procedure time. ED Disposition Clinical Impression: COPD with acute exacerbation, Acute chest pain Disposition: - TO HOME OR SELFCARE Is pt being admited?: No Condition: Stable Instructions: Chronic Obstructive Pulmonary Disease (ED), Chest Pain (ED) Prescriptions: predniSONE [Deltasone] 50 mg PO QDAY #5 tab Phenytoin [Dilantin] 100 mg PO Q8HR #100 capsule Albuterol Sulfate [Proventil Hfa] 2 puff IH Q4HR PRN #1 hfa.aer.ad PRN Reason: Wheezing Benzonatate [Tessalon Perles] 100 mg PO Q8HR PRN #20 capsule PRN Reason: Cough Referrals: MONSTER ALEJANDRO DO [Staff Physician] - 3-5 Days RAIN FERNANDEZ MD [Staff Physician] - 3-5 Days ARIS ROSALES MD [Staff Physician] - 3-5 Days [place] MARKY CEDENO MD [Primary Care Provider] - 3-5 Days Forms: Work/School Release Form(ED) Time of Disposition: 17:51
[2019-05-26] MEDS ORDERED: IBUPROFEN 800 MG TAB PO ONE (14:48)
[2019-05-26 16:26] VITALS: BP 169/110
--- NOTE | 2019-05-26 16:57 | Cat Scan Report ---
CTA CHEST WITH IV CONTRAST INDICATION: Chest pain. TECHNIQUE: Axial CT images were obtained through the chest after injection of 100 MLO Omnipaque 350 IV contrast. 3 plane MIP reconstructions were produced. All CT scans at this location are performed using CT dose reduction for ALARA by means of automated exposure control. COMPARISON: 2 views of the chest from earlier today. FINDINGS: PULMONARY ARTERIES: Well-opacified without distinct thromboemboli. AORTA AND ARTERIES: The aorta is mildly calcified with mild dilatation of the ascending thoracic aort a, which measures 4.2 x 4.2 cm on image 62 of series 2. The descending thoracic aorta is normal in ca liber. There is mild atherosclerosis along the great vessels and coronary arteries. MEDIASTINUM: No significant abnormality of the heart or other mediastinal structures. LUNGS: Mild dependent atelectasis is seen bilaterally. The lungs are otherwise clear without a pneumo thorax or pleural effusion. ADDITIONAL FINDINGS: None. UPPER ABDOMEN: No acute findings. BONES: No significant osseous abnormality. IMPRESSION: 1. No CT evidence of a pulmonary artery thromboembolism or other acute abnormality of the chest. 2. Ascending thoracic aortic aneurysm measuring 4.2 x 4.2 cm without an acute complication. 3. Additional findings as above. Signer Name: Teto Carlin MD Signed: 05/26/2019 4:53 PM Workstation Name: [id number]
== END 2019-05-26 18:30 | disposition home or self-care (01) ==
LOC: ED 11:54
DX: J44.1 Chronic obstructive pulmonary disease with (acute) exacerbation (principal); I11.0 Hypertensive heart disease with heart failure; I50.9 Heart failure, unspecified; F17.200 Nicotine dependence, unspecified, uncomplicated; Z86.718 Personal history of other venous thrombosis and embolism; Z90.710 Acquired absence of both cervix and uterus; Z79.899 Other long term (current) drug therapy; Z88.0 Allergy status to penicillin
CPT/HCPCS: 36415; 36430; 71046; 71275; 80053; 83880; 84484; 85025; 85379; 85610; 85730; 93005; 93010; 94640; 99285; P9016; Q9967; 94644

== ENCOUNTER 2019-07-05 07:18 | Emergency (ER) | payer BC ==
[2019-07-05] MEDS ORDERED: ASPIRIN 325 MG TAB PO ONE (07:27)
--- NOTE | 2019-07-05 08:09 | XRay Report ---
CHEST 2 VIEWS INDICATION: Chest Pain. COMPARISON: 05/26/2019 FINDINGS: Support devices: None. Heart: Heart size is within normal limits on today's exam. Lungs/pleura: Mild central pulmonary venous congestion is suspected and appears relatively stable. Th e interstitium is prominent in both lungs but no evidence for infiltrate, large pleural effusion or p neumothorax. Additional findings: None. IMPRESSION: Mild pulmonary venous congestion. No overwhelming change since 05/26/2019. Signer Name: Ian Petty Jr, MD Signed: 07/05/2019 8:05 AM Workstation Name: [id number]
[2019-07-05 08:11] LABS: Hematocrit 41.6 % (30.3-42.9); Hemoglobin 13.1 gm/dl (10.1-14.3); Mean Corpuscular HGB Conc 32 % (30-34); Mean Corpuscular Volume 71 fl (79-97); Red Blood Count 5.84 M/mm3 (3.65-5.03); Red Cell Distribution Width 16.3 % (13.2-15.2)
[2019-07-05 08:34] LABS: BUN/Creatinine Ratio 16; Blood Urea Nitrogen 13 mg/dL (7-17); Calcium 9.1 mg/dL (8.4-10.2); Hemolysis Index 7
[2019-07-05 09:03] LABS: Total Cells Counted 100
[2019-07-05 09:04] LABS: Anisocytosis Few; Large Platelets Few; Ovalocytes Rare; Platelet Estimate Consistent w Auto; Target Cells Few
[2019-07-05 09:06] LABS: Platelet Count 149 K/mm3 (140-440)
[2019-07-05] MEDS ORDERED: IPRATROPIUM/ALBUTEROL SULFATE 3 ML AMPUL.NEB IH ONE (10:56)
[2019-07-05] MEDS ORDERED: FUROSEMIDE 20 MG TAB PO ONE (10:59)
--- NOTE | 2019-07-05 10:59 | Emergency Department Report ---
ED Chest Pain HPI - General Chief Complaint: Chest Pain Stated Complaint: CHEST PAIN/HARISH Time Seen by Provider: 07/05/19 09:04 Source: patient Mode of arrival: Ambulatory Limitations: No Limitations - History of Present Illness Initial Comments: This is a 54-year-old -Iranian female who presents to the emergency room with chest pain and dyspnea for 1 week. Past medical history of COPD, hypertension, CHF, and current smoker. Patient admits to noncompliance with medication. Patient states she stopped taking medication for to 5 months ago. States she was getting over a cold last week which she thinks prompted current symptoms. She admits to shortness of breath with exertion. Denies fever, chills, myalgia, wheezing, edema, or palpitations. MD Complaint: chest pain Onset/Timin -: week(s) Onset: during exertion Pain Location: substernal Severity scale (0 -10): 5 Quality: tightness Consistency: intermittent Improves With: rest, remaining still Worsens With: exertion Context: recent illness Other Symptoms: cough Treatments Prior to Arrival: none - Related Data Home Medications Medication Instructions Recorded Confirmed Last Taken Acetaminophen with Codeine 1 each PO Q6HR PRN 05/26/17 05/26/17 Unknown [Acetaminophen-Codeine #2 TAB] tiZANidine [Zanaflex] 4 mg PO TID PRN 05/26/17 05/26/17 Unknown Previous Rx's Medication Instructions Recorded Last Taken Type Albuterol INH(or & Nicu Only) 2 puff IH QID PRN #1 inhalation 02/21/17 Unknown Rx [ProAir HFA Inhaler] Phenytoin [Dilantin] 300 mg PO QDAY #90 capsule.er 02/21/17 Unknown Rx Naproxen [Naprosyn] 500 mg PO BID #20 tablet 01/03/19 Unknown Rx predniSONE [Deltasone] 50 mg PO QDAY #5 tab 01/03/19 Unknown Rx traMADoL [Ultram] 50 mg PO Q6HR PRN #7 tablet 01/03/19 Unknown Rx Phenytoin [Dilantin] 100 mg PO Q8HR #100 capsule 05/26/19 Unknown Rx Albuterol Sulfate [Proventil Hfa] 2 puff IH Q4HR PRN #1 hfa.aer.ad 07/05/19 Unknown Rx Benzonatate [Tessalon Perles] 100 mg PO Q8HR PRN #20 capsule 07/05/19 Unknown Rx amLODIPine 5 mg PO DAILY #30 07/05/19 Unknown Rx hydroCHLOROthiazide [HCTZ] 25 mg PO QDAY #30 07/05/19 Unknown Rx predniSONE [Deltasone] 50 mg PO QDAY #5 tab 07/05/19 Unknown Rx Allergies Allergy/AdvReac Type Severity Reaction Status Date / Time Penicillins Allergy Swelling Verified 05/20/13 15:21 Heart Score - HEART Score History: Moderately suspicious EKG: Significant ST-depression Age: 45-65 Risk factors: 1-2 risk factors Troponin: < normal limit HEART Score: 5 - Critical Actions Critical Actions: 4-6 pts:12-16.6% risk of adverse cardiac event. Should be admitted ED Review of Systems ROS: Stated complaint: CHEST PAIN/HARISH Other details as noted in HPI Constitutional: chills. denies: fever Respiratory: cough, SOB with exertion. denies: wheezing Cardiovascular: chest pain. denies: palpitations Gastrointestinal: denies: abdominal pain, nausea, diarrhea Musculoskeletal: denies: back pain, joint swelling, arthralgia Skin: denies: rash, lesions Neurological: denies: headache, weakness, paresthesias Psychiatric: denies: anxiety, depression ED Past Medical Hx - Past Medical History Hx Hypertension: Yes Hx Congestive Heart Failure: Yes Hx Deep Vein Thrombosis: Yes Hx Seizures: Yes Hx Psychiatric Treatment: Yes Hx COPD: Yes Additional medical history: aneurysm - Surgical History Additional Surgical History: aneurysm clip, hysterectomy - Social History Smoking Status: Current Every Day Smoker - Medications Home Medications: Home Medications Medication Instructions Recorded Confirmed Last Taken Type Albuterol INH(or & Nicu Only) 2 puff IH QID PRN #1 inhalation 02/21/17 05/26/17 Unknown Rx [ProAir HFA Inhaler] Phenytoin [Dilantin] 300 mg PO QDAY #90 capsule.er 02/21/17 05/26/17 Unknown Rx Acetaminophen with Codeine 1 each PO Q6HR PRN 05/26/17 05/26/17 Unknown History [Acetaminophen-Codeine #2 TAB] tiZANidine [Zanaflex] 4 mg PO TID PRN 05/26/17 05/26/17 Unknown History Naproxen [Naprosyn] 500 mg PO BID #20 tablet 01/03/19 Unknown Rx predniSONE [Deltasone] 50 mg PO QDAY #5 tab 01/03/19 Unknown Rx traMADoL [Ultram] 50 mg PO Q6HR PRN #7 tablet 01/03/19 Unknown Rx Phenytoin [Dilantin] 100 mg PO Q8HR #100 capsule 05/26/19 Unknown Rx Albuterol Sulfate [Proventil Hfa] 2 puff IH Q4HR PRN #1 hfa.aer.ad 07/05/19 Unknown Rx Benzonatate [Tessalon Perles] 100 mg PO Q8HR PRN #20 capsule 07/05/19 Unknown Rx amLODIPine 5 mg PO DAILY #30 07/05/19 Unknown Rx hydroCHLOROthiazide [HCTZ] 25 mg PO QDAY #30 07/05/19 Unknown Rx predniSONE [Deltasone] 50 mg PO QDAY #5 tab 07/05/19 Unknown Rx ED Physical Exam - General Limitations: No Limitations General appearance: alert, in no apparent distress, obese - ENT ENT exam: Present: mucous membranes moist - Respiratory Respiratory exam: Present: normal lung sounds bilaterally, other (crackles throu ghout). Absent: respiratory distress, wheezes, rales, stridor, chest wall tenderness, accessory muscle use - Cardiovascular Cardiovascular Exam: Present: regular rate, normal rhythm. Absent: systolic murmur, diastolic murmur, rubs, gallop - GI/Abdominal GI/Abdominal exam: Present: soft, normal bowel sounds - Neurological Exam Neurological exam: Present: alert, oriented X3, normal gait - Psychiatric Psychiatric exam: Present: normal affect, normal mood - Skin Skin exam: Present: warm, dry, intact, normal color. Absent: rash ED Course Vital Signs 07/05/19 07/05/19 07/05/19 07:24 09:17 11:12 Temperature 98.3 F 99.5 F Pulse Rate 84 78 Pulse Rate [ 74 Anterior Bilateral Throughout] Respiratory 22 20 Rate Respiratory 18 Rate [Anterior Bilateral Throughout] Blood Pressure 178/109 Blood Pressure 168/109 [Left] Blood Pressure [Right] O2 Sat by Pulse 98 95 Oximetry 07/05/19 07/05/19 07/05/19 11:53 13:33 13:35 Temperature Pulse Rate 71 74 74 Pulse Rate [ Anterior Bilateral Throughout] Respiratory 20 20 Rate Respiratory Rate [Anterior Bilateral Throughout] Blood Pressure 178/114 Blood Pressure [Left] Blood Pressure 194/110 178/114 [Right] O2 Sat by Pulse 98 97 Oximetry 07/05/19 14:55 Temperature Pulse Rate 77 Pulse Rate [ Anterior Bilateral Throughout] Respiratory 18 Rate Respiratory Rate [Anterior Bilateral Throughout] Blood Pressure Blood Pressure [Left] Blood Pressure 115/91 [Right] O2 Sat by Pulse 98 Oximetry ED Medical Decision Making - Lab Data Result diagrams: 07/05/19 07:55 07/05/19 07:55 Lab Results 07/05/19 07/05/19 07/05/19 Range/Units 07:55 07:55 07:55 WBC 6.1 (4.5-11.0) K/mm3 RBC 5.84 H (3.65-5.03) M/mm3 Hgb 13.1 (10.1-14.3) gm/dl Hct 41.6 (30.3-42.9) % MCV 71 L (79-97) fl MCH 23 L (28-32) pg MCHC 32 (30-34) % RDW 16.3 H (13.2-15.2) % Plt Count 149 (140-440) K/mm3 Add Manual Diff Complete Total Counted 100 Seg Neuts % (Manual) 41.0 (40.0-70.0) % Band Neutrophils % 0 % Lymphocytes % (Manual) 46.0 H (13.4-35.0) % Reactive Lymphs % (Man) 0 % Monocytes % (Manual) 5.0 (0.0-7.3) % Eosinophils % (Manual) 7.0 H (0.0-4.3) % Basophils % (Manual) 1.0 (0.0-1.8) % Metamyelocytes % 0 % Myelocytes % 0 % Promyelocytes % 0 % Blast Cells % 0 % Nucleated RBC % Not Reportable Seg Neutrophils # Man 2.5 (1.8-7.7) K/mm3 Band Neutrophils # 0.0 K/mm3 Lymphocytes # (Manual) 2.8 (1.2-5.4) K/mm3 Abs React Lymphs (Man) 0.0 K/mm3 Monocytes # (Manual) 0.3 (0.0-0.8) K/mm3 Eosinophils # (Manual) 0.4 (0.0-0.4) K/mm3 Basophils # (Manual) 0.1 (0.0-0.1) K/mm3 Metamyelocytes # 0.0 K/mm3 Myelocytes # 0.0 K/mm3 Promyelocytes # 0.0 K/mm3 Blast Cells # 0.0 K/mm3 WBC Morphology Not Reportable Hypersegmented Neuts Not Reportable Hyposegmented Neuts Not Reportable Hypogranular Neuts Not Reportable Smudge Cells Not Reportable Toxic Granulation Not Reportable Toxic Vacuolation Not Reportable Dohle Bodies Not Reportable Pelger-Huet Anomaly Not Reportable Renan Rods Not Reportable Platelet Estimate Consistent w auto Clumped Platelets Not Reportable Plt Clumps, EDTA Not Reportable Large Platelets Few Giant Platelets Not Reportable Platelet Satelliting Not Reportable Plt Morphology Comment Not Reportable RBC Morphology Not Reportable Dimorphic RBCs Not Reportable Polychromasia Not Reportable Hypochromasia Not Reportable Poikilocytosis Not Reportable Anisocytosis Few Microcytosis Not Reportable Macrocytosis Not Reportable Spherocytes Not Reportable Pappenheimer Bodies Not Reportable Sickle Cells Not Reportable Target Cells Few Tear Drop Cells Not Reportable Ovalocytes Rare Helmet Cells Not Reportable Carranza-Hostetter Bodies Not Reportable [place] Rings Not Reportable [place] Cells Not Reportable Bite Cells Not Reportable Crenated Cell Not Reportable Elliptocytes Not Reportable Acanthocytes (Spur) Not Reportable Rouleaux Not Reportable Hemoglobin C Crystals Not Reportable Schistocytes Not Reportable Malaria parasites Not Reportable Adam Bodies Not Reportable Hem Pathologist Commnt No Sodium 142 (137-145) mmol/L Potassium 4.3 (3.6-5.0) mmol/L Chloride 107.1 H (98-107) mmol/L Carbon Dioxide 21 L (22-30) mmol/L Anion Gap 18 mmol/L BUN 13 (7-17) mg/dL Creatinine 0.8 (0.7-1.2) mg/dL Estimated GFR > 60 ml/min BUN/Creatinine Ratio 16 % Glucose 94 (65-100) mg/dL Calcium 9.1 (8.4-10.2) mg/dL Troponin T < 0.010 (0.00-0.029) ng/mL NT-Pro-B Natriuret Pep 1049 H (0-900) pg/mL 07/05/19 Range/Units 14:05 WBC (4.5-11.0) K/mm3 RBC (3.65-5.03) M/mm3 Hgb (10.1-14.3) gm/dl Hct (30.3-42.9) % MCV (79-97) fl MCH (28-32) pg MCHC (30-34) % RDW (13.2-15.2) % Plt Count (140-440) K/mm3 Add Manual Diff Total Counted Seg Neuts % (Manual) (40.0-70.0) % Band Neutrophils % % Lymphocytes % (Manual) (13.4-35.0) % Reactive Lymphs % (Man) % Monocytes % (Manual) (0.0-7.3) % Eosinophils % (Manual) (0.0-4.3) % Basophils % (Manual) (0.0-1.8) % Metamyelocytes % % Myelocytes % % Promyelocytes % % Blast Cells % % Nucleated RBC % Seg Neutrophils # Man (1.8-7.7) K/mm3 Band Neutrophils # K/mm3 Lymphocytes # (Manual) (1.2-5.4) K/mm3 Abs React Lymphs (Man) K/mm3 Monocytes # (Manual) (0.0-0.8) K/mm3 Eosinophils # (Manual) (0.0-0.4) K/mm3 Basophils # (Manual) (0.0-0.1) K/mm3 Metamyelocytes # K/mm3 Myelocytes # K/mm3 Promyelocytes # K/mm3 Blast Cells # K/mm3 WBC Morphology Hypersegmented Neuts Hyposegmented Neuts Hypogranular Neuts Smudge Cells Toxic Granulation Toxic Vacuolation Dohle Bodies Pelger-Huet Anomaly Renan Rods Platelet Estimate Clumped Platelets Plt Clumps, EDTA Large Platelets Giant Platelets Platelet Satelliting Plt Morphology Comment RBC Morphology Dimorphic RBCs Polychromasia Hypochromasia Poikilocytosis Anisocytosis Microcytosis Macrocytosis Spherocytes Pappenheimer Bodies Sickle Cells Target Cells Tear Drop Cells Ovalocytes Helmet Cells Carranza-Hostetter Bodies [place] Rings [place] Cells Bite Cells Crenated Cell Elliptocytes Acanthocytes (Spur) Rouleaux Hemoglobin C Crystals Schistocytes Malaria parasites Adam Bodies Hem Pathologist Commnt Sodium (137-145) mmol/L Potassium (3.6-5.0) mmol/L Chloride (98-107) mmol/L Carbon Dioxide (22-30) mmol/L Anion Gap mmol/L BUN (7-17) mg/dL Creatinine (0.7-1.2) mg/dL Estimated GFR ml/min BUN/Creatinine Ratio % Glucose (65-100) mg/dL Calcium (8.4-10.2) mg/dL Troponin T < 0.010 (0.00-0.029) ng/mL NT-Pro-B Natriuret Pep (0-900) pg/mL - EKG Data -: No EKG Interpreted by Me (EKG interpreted by attending) - Radiology Data Radiology results: report reviewed CHEST 2 VIEWS INDICATION: Chest Pain. COMPARISON: 05/26/2019 FINDINGS: Support devices: None. Heart: Heart size is within normal limits on today's exam. Lungs/pleura: Mild central pulmonary venous congestion is suspected and appears relatively stable. The interstitium is prominent in both lungs but no evidence for infiltrate, large pleural effusion or pneumothorax. Additional findings: None. IMPRESSION: Mild pulmonary venous congestion. No overwhelming change since 05/26/2019. - Medical Decision Making Vital signs are stable inpatient in no acute distress. Labs, EKG, and chest x-ray are obtained. Given lasix, breathing treatments, and blood pressure medication. BMP slightly elevated, Troponin negative x 2, all of the labs are unremarkable. Mild pulmonary venous congestion. No overwhelming change since 05/26/2019. Noncompliant with medication. Reevaluation reports feeling better. Ambulating unit with no signs of dyspnea or distress. COPD exacerbation and Uncontrolled HTN Restart medication. Referral to PCP for continued care. - Differential Diagnosis pneumonia, COPD, PE, & ACS Critical care attestation.: If time is entered above; I have spent that time in minutes in the direct care of this critically ill patient, excluding procedure time. ED Disposition Clinical Impression: COPD exacerbation, Shortness of breath, Uncontrolled hypertension Chest pain Qualifiers: Chest pain type: other chest pain Qualified Code(s): R07.89 - Other chest pain Disposition: - TO HOME OR SELFCARE Is pt being admited?: No Condition: Stable Instructions: Chest Pain (ED), Chronic Bronchitis (ED), Hypertension (ED) Prescriptions: amLODIPine 5 mg PO DAILY #30 predniSONE [Deltasone] 50 mg PO QDAY #5 tab hydroCHLOROthiazide [HCTZ] 25 mg PO QDAY #30 Albuterol Sulfate [Proventil Hfa] 2 puff IH Q4HR PRN #1 hfa.aer.ad PRN Reason: Wheezing Benzonatate [Tessalon Perles] 100 mg PO Q8HR PRN #20 capsule PRN Reason: Cough Referrals: RAIN FERNANDEZ MD [Staff Physician] - 3-5 Days ODETTE EMERY MD [Staff Physician] - 3-5 Days [facility] [Provider Group] - 3-5 Days Forms: Work/School Release Form(ED) Time of Disposition: 15:00
[2019-07-05] MEDS ORDERED: cloNIDine 0.2 MG TAB PO ONE (13:14)
[2019-07-05 14:55] VITALS: BP 115/91
== END 2019-07-05 15:26 | disposition home or self-care (01) ==
LOC: ED 07:18
DX: J44.1 Chronic obstructive pulmonary disease with (acute) exacerbation (principal); I11.0 Hypertensive heart disease with heart failure; I50.9 Heart failure, unspecified; R06.02 Shortness of breath; R07.9 Chest pain, unspecified; F17.200 Nicotine dependence, unspecified, uncomplicated; Z90.710 Acquired absence of both cervix and uterus; Z88.0 Allergy status to penicillin; Z79.899 Other long term (current) drug therapy
CPT/HCPCS: 36415; 71046; 80048; 83880; 84484; 85007; 85025; 93005; 93010; 94640; 94644

== ENCOUNTER 2019-10-04 09:10 | Emergency (ER) | payer BC ==
--- NOTE | 2019-10-04 10:12 | XRay Report ---
CHEST 1 VIEW INDICATION / CLINICAL INFORMATION: MAIN: Chest Pain X 3 WEEKS. COMPARISON: 07/05/2019 FINDINGS: SUPPORT DEVICES: None. HEART / MEDIASTINUM: No significant abnormality. LUNGS / PLEURA: No significant pulmonary or pleural abnormality. No pneumothorax. ADDITIONAL FINDINGS: No significant additional findings. IMPRESSION: 1. No significant change Signer Name: Frederick Geiger MD Signed: 10/04/2019 10:07 AM Workstation Name: [id number]
--- NOTE | 2019-10-04 11:08 | Emergency Department Report ---
ED Chest Pain HPI - General Chief Complaint: Dyspnea/Respdistress Stated Complaint: CHEST TIGHTNESS,SOB Time Seen by Provider: 10/04/19 11:05 Source: patient Mode of arrival: Ambulatory Limitations: No Limitations - History of Present Illness Initial Comments: This is a 54-year-old female with history of COPD, type tobacco abuse, CHF, DVT, hypertension, seizures, aneurysm who presents with chest tightness shortness of breath productive cough with sputum. She also had hand swelling. After syncopal episode 3 weeks ago, she was admitted at [facility]. She was diagnosed with CHF. She also was tested negative for COVID-19 infection. Since that time she had self isolated 14 days. She lives with her . She works at a fast food restaurant. She has been taking her medications. She has persistent chest tightness for the past 2 days. No change with exertion inspiration or movement. She does not have a PCP. She has not followed up with physicians to which she was referred. MD Complaint: chest pain -: Gradual, days(s) (2) Onset: during rest Pain Location: substernal Severity: mild Quality: tightness Consistency: constant Improves With: nothing Worsens With: nothing Other Symptoms: cough - Related Data Home Medications Medication Instructions Recorded Confirmed Last Taken Acetaminophen with Codeine 1 each PO Q6HR PRN 05/26/17 05/26/17 Unknown [Acetaminophen-Codeine #2 TAB] tiZANidine [Zanaflex] 4 mg PO TID PRN 05/26/17 05/26/17 Unknown Previous Rx's Medication Instructions Recorded Last Taken Type Albuterol INH(or & Nicu Only) 2 puff IH QID PRN #1 inhalation 02/21/17 Unknown Rx [ProAir HFA Inhaler] Phenytoin [Dilantin] 300 mg PO QDAY #90 capsule.er 02/21/17 Unknown Rx Naproxen [Naprosyn] 500 mg PO BID #20 tablet 01/03/19 Unknown Rx predniSONE [Deltasone] 50 mg PO QDAY #5 tab 01/03/19 Unknown Rx traMADoL [Ultram] 50 mg PO Q6HR PRN #7 tablet 01/03/19 Unknown Rx Phenytoin [Dilantin] 100 mg PO Q8HR #100 capsule 05/26/19 Unknown Rx Albuterol Sulfate [Proventil Hfa] 2 puff IH Q4HR PRN #1 hfa.aer.ad 07/05/19 Unknown Rx Benzonatate [Tessalon Perles] 100 mg PO Q8HR PRN #20 capsule 07/05/19 Unknown Rx amLODIPine 5 mg PO DAILY #30 07/05/19 Unknown Rx hydroCHLOROthiazide [HCTZ] 25 mg PO QDAY #30 07/05/19 Unknown Rx predniSONE [Deltasone] 50 mg PO QDAY #5 tab 07/05/19 Unknown Rx Albuterol INH(or & Nicu Only) 2 puff IH QID PRN #8.5 gram 10/04/19 Unknown Rx [ProAir HFA Inhaler] DOXYCYCLINE Hyclate [Vibramycin 100 mg PO Q12HR 7 Days #14 capsule 10/04/19 Unknown Rx CAP] Potassium Chloride [K-Dur] 10 meq PO QDAY 14 Days #14 tablet 10/04/19 Unknown Rx Prednisone [predniSONE 10 mg 10 mg PO .TAPER #1 tab.ds.pk 10/04/19 Unknown Rx (6-Day Pack, 21 Tabs)] Allergies Allergy/AdvReac Type Severity Reaction Status Date / Time Penicillins Allergy Swelling Verified 05/20/13 15:21 Heart Score - HEART Score History: Slightly suspicious EKG: Normal Age: 45-65 Risk factors: > 3 risk factors or hx of atherosclerotic disease Troponin: < normal limit HEART Score: 3 ED Review of Systems ROS: Stated complaint: CHEST TIGHTNESS,SOB Other details as noted in HPI Comment: All other systems reviewed and negative Constitutional: denies: fever, malaise Respiratory: cough, shortness of breath Cardiovascular: chest pain Gastrointestinal: denies: abdominal pain, nausea, vomiting ED Past Medical Hx - Past Medical History Previous Medical History?: Yes Hx Hypertension: Yes Hx Congestive Heart Failure: Yes Hx Deep Vein Thrombosis: Yes Hx Seizures: Yes Hx Psychiatric Treatment: Yes Hx COPD: Yes Additional medical history: aneurysm - Surgical History Past Surgical History?: Yes Additional Surgical History: aneurysm clip, hysterectomy - Social History Smoking Status: Current Every Day Smoker Substance Use Type: None - Medications Home Medications: Home Medications Medication Instructions Recorded Confirmed Last Taken Type Albuterol INH(or & Nicu Only) 2 puff IH QID PRN #1 inhalation 02/21/17 05/26/17 Unknown Rx [ProAir HFA Inhaler] Phenytoin [Dilantin] 300 mg PO QDAY #90 capsule.er 02/21/17 05/26/17 Unknown Rx Acetaminophen with Codeine 1 each PO Q6HR PRN 05/26/17 05/26/17 Unknown History [Acetaminophen-Codeine #2 TAB] tiZANidine [Zanaflex] 4 mg PO TID PRN 05/26/17 05/26/17 Unknown History Naproxen [Naprosyn] 500 mg PO BID #20 tablet 01/03/19 Unknown Rx predniSONE [Deltasone] 50 mg PO QDAY #5 tab 01/03/19 Unknown Rx traMADoL [Ultram] 50 mg PO Q6HR PRN #7 tablet 01/03/19 Unknown Rx Phenytoin [Dilantin] 100 mg PO Q8HR #100 capsule 05/26/19 Unknown Rx Albuterol Sulfate [Proventil Hfa] 2 puff IH Q4HR PRN #1 hfa.aer.ad 07/05/19 Unknown Rx Benzonatate [Tessalon Perles] 100 mg PO Q8HR PRN #20 capsule 07/05/19 Unknown Rx amLODIPine 5 mg PO DAILY #30 07/05/19 Unknown Rx hydroCHLOROthiazide [HCTZ] 25 mg PO QDAY #30 07/05/19 Unknown Rx predniSONE [Deltasone] 50 mg PO QDAY #5 tab 07/05/19 Unknown Rx Albuterol INH(or & Nicu Only) 2 puff IH QID PRN #8.5 gram 10/04/19 Unknown Rx [ProAir HFA Inhaler] DOXYCYCLINE Hyclate [Vibramycin 100 mg PO Q12HR 7 Days #14 capsule 10/04/19 Unknown Rx CAP] Potassium Chloride [K-Dur] 10 meq PO QDAY 14 Days #14 tablet 10/04/19 Unknown Rx Prednisone [predniSONE 10 mg 10 mg PO .TAPER #1 tab.ds.pk 10/04/19 Unknown Rx (6-Day Pack, 21 Tabs)] ED Physical Exam - General Limitations: No Limitations General appearance: alert, in no apparent distress, other (Talkative laying comfortably laying supine and on her right side.) - Head Head exam: Present: atraumatic, normocephalic - Eye Eye exam: Present: normal appearance - ENT ENT exam: Present: mucous membranes moist - Neck Neck exam: Present: normal inspection, full ROM - Respiratory Respiratory exam: Present: normal lung sounds bilaterally. Absent: respiratory distress, wheezes, rales, rhonchi - Cardiovascular Cardiovascular Exam: Present: regular rate, normal rhythm, normal heart sounds. Absent: systolic murmur, diastolic murmur, rubs, gallop - GI/Abdominal GI/Abdominal exam: Present: soft, normal bowel sounds. Absent: distended, tenderness, guarding, rebound - Extremities Exam Extremities exam: Present: normal inspection - Neurological Exam Neurological exam: Present: alert, oriented X3 - Psychiatric Psychiatric exam: Present: normal affect, normal mood - Skin Skin exam: Present: warm, dry, intact, normal color. Absent: rash ED Course Vital Signs 10/04/19 09:22 Temperature 98.8 F Pulse Rate 68 Respiratory 24 Rate Blood Pressure 183/113 O2 Sat by Pulse 98 Oximetry ED Medical Decision Making - Lab Data Result diagrams: 10/04/19 10:44 10/04/19 10:44 Laboratory Results - last 24 hr 10/04/19 10/04/19 10/04/19 10:44 10:44 10:44 WBC 5.3 RBC 5.54 H Hgb 12.2 Hct 38.9 MCV 70 L MCH 22 L MCHC 32 RDW 16.0 H Plt Count 145 PT 14.0 INR 1.07 APTT 24.7 Sodium 140 Potassium 3.3 L Chloride 102.4 Carbon Dioxide 21 L Anion Gap 20 BUN 10 Creatinine 0.7 Estimated GFR > 60 BUN/Creatinine Ratio 14 Glucose 148 H Calcium 9.1 Troponin T < 0.010 - EKG Data EKG shows normal: sinus rhythm, axis, intervals, QRS complexes, ST-T waves Rate: normal - EKG Data Interpretation: normal EKG - Radiology Data Radiology results: report reviewed Chest radiograph: No significant findings according to radiology impression - Medical Decision Making With presentation of cough: Productive sputum, chest tightness I suspect COPD exacerbation. Prescribed prednisone doxycycline albuterol MDI CBC chemistry within normal limits with exception of mild hypokalemia. Also prescribed potassium tablets. Critical care attestation.: If time is entered above; I have spent that time in minutes in the direct care of this critically ill patient, excluding procedure time. ED Disposition Clinical Impression: COPD exacerbation, Hypokalemia Disposition: - TO HOME OR SELFCARE Is pt being admited?: No Does the pt Need Aspirin: No Condition: Stable Instructions: Chronic Bronchitis (ED), Hypokalemia (ED) Prescriptions: Potassium Chloride [K-Dur] 10 meq PO QDAY 14 Days #14 tablet Prednisone [predniSONE 10 mg (6-Day Pack, 21 Tabs)] 10 mg PO .TAPER #1 tab.ds.pk Albuterol INH(or & Nicu Only) [ProAir HFA Inhaler] 2 puff IH QID PRN #8.5 gram PRN Reason: Shortness Of Breath DOXYCYCLINE Hyclate [Vibramycin CAP] 100 mg PO Q12HR 7 Days #14 capsule Referrals: RAIN FERNANDEZ MD [Staff Physician] - 3-5 Days Forms: Work/School Release Form(ED)
[2019-10-04 11:18] LABS: Hematocrit 38.9 % (30.3-42.9); Hemoglobin 12.2 gm/dl (10.1-14.3); Mean Corpuscular HGB Conc 32 % (30-34); Mean Corpuscular Volume 70 fl (79-97); Platelet Count 145 K/mm3 (140-440); Red Blood Count 5.54 M/mm3 (3.65-5.03)
[2019-10-04 11:21] LABS: INR 1.07 (0.87-1.13)
[2019-10-04 11:22] LABS: Partial Thromboplastin Time 24.7 Sec. (24.2-36.6)
[2019-10-04 11:23] LABS: BUN/Creatinine Ratio 14; Blood Urea Nitrogen 10 mg/dL (7-17); Calcium 9.1 mg/dL (8.4-10.2); Hemolysis Index 6
[2019-10-04 12:22] LABS: Band Neutrophils # (Manual) 0.1 K/mm3; Hypochromasia 1+; Platelet Estimate Consistent w Auto; Total Cells Counted 100
[2019-10-04 12:52] VITALS: BP 155/103
== END 2019-10-04 12:40 | disposition home or self-care (01) ==
LOC: ED 09:10
DX: J44.1 Chronic obstructive pulmonary disease with (acute) exacerbation (principal); E87.6 Hypokalemia; I11.0 Hypertensive heart disease with heart failure; I50.9 Heart failure, unspecified; J44.9 Chronic obstructive pulmonary disease, unspecified; F17.200 Nicotine dependence, unspecified, uncomplicated; Z90.710 Acquired absence of both cervix and uterus; Z79.899 Other long term (current) drug therapy; Z88.0 Allergy status to penicillin
CPT/HCPCS: 36415; 71045; 80048; 84484; 85007; 85025; 85610; 85730; 93005; 93010

== ENCOUNTER 2021-12-02 10:36 | Emergency (ER) | payer MEDICARE ==
[2021-12-02] MEDS ORDERED: ASPIRIN 325 MG TAB PO ONE (10:50)
--- NOTE | 2021-12-02 11:26 | XRay Report ---
CHEST 2 VIEWS INDICATION / CLINICAL INFORMATION: Chest Pain. COMPARISON: 09/10/2021 FINDINGS: SUPPORT DEVICES: None. HEART / MEDIASTINUM: No significant abnormality. LUNGS / PLEURA: Mild increased interstitial prominence in the lower lungs with left lower lung atelec tasis No pneumothorax. Signer Name: Lanre Gomez MD Signed: 12/02/2021 11:21 AM Workstation Name: [id number]
[2021-12-02] MEDS ORDERED: HYDROcodone/ACETAMINOPHEN 5-325 MG TAB PO ONE (11:51)
[2021-12-02] MEDS ORDERED: ONDANSETRON 4 MG ODT TAB PO ONE (11:51)
--- NOTE | 2021-12-02 12:02 | Emergency Department Report ---
ED General Adult HPI - General Chief complaint: Chest Pain Stated complaint: TIGHNESS IN CHEST/SWELLING IN RT ARM Time Seen by Provider: 12/02/21 11:41 Source: patient Mode of arrival: Ambulatory Limitations: No Limitations - History of Present Illness Initial comments: The patient presents to the emergency department the chief complaint of right arm swelling and right shoulder pain that has been present for 1 day. Patient states she has had pain like this before and is usually relieved by shot. Patient denies any aida chest pain or shortness of breath. Patient states the pain is made worse with movement of the right arm. Patient states she has a history of blood clots and is concerned that she may have 1 now. -: Sudden Location: upper extremity Radiation: extremity Severity scale (0 -10): 5 Quality: aching Consistency: constant Improves with: none Worsens with: none Associated Symptoms: denies other symptoms Treatments Prior to Arrival: none - Related Data Home Medications Medication Instructions Recorded Confirmed Last Taken Acetaminophen with Codeine 1 each PO Q6HR PRN 05/26/17 09/11/21 09/09/21 [Acetaminophen-Codeine #2 TAB] Phenytoin [Dilantin] 300 mg PO DAILY 01/21/20 09/11/21 09/10/21 09:00 Previous Rx's Medication Instructions Recorded Last Taken Type Albuterol Mdi (or & Nicu Only) 2 puff IH QID PRN #1 inhalation 02/21/17 09/08/21 Rx [ProAir HFA Inhaler] traMADoL [Ultram 50 MG tab] 50 mg PO Q6HR PRN #7 tablet 01/03/19 09/09/21 Rx Albuterol Sulfate [Proventil Hfa] 2 puff IH Q4HR PRN #1 hfa.aer.ad 07/05/19 09/02/21 Rx hydroCHLOROthiazide [HCTZ] 25 mg PO QDAY #30 07/05/19 09/10/21 Rx Prednisone [predniSONE 10 mg 10 mg PO .TAPER #1 tab.ds.pk 10/04/19 09/08/21 Rx (6-Day Pack, 21 Tabs)] Aspirin EC [Halfprin EC] 81 mg PO QDAY #30 tablet.dr 09/13/21 Unknown Rx AtorvaSTATin [Lipitor] 20 mg PO QHS #30 tab 09/13/21 Unknown Rx Nicotine [Habitrol] 14 mg TD QDAY #30 patch 09/13/21 Unknown Rx Phenytoin [Dilantin] 300 mg PO HS #30 capsule.er 09/13/21 Unknown Rx oxyCODONE /ACETAMINOPHEN [Percocet 1 tab PO DAILY PRN #7 09/13/21 Unknown Rx 5/325] Ibuprofen [Motrin] 800 mg PO Q8HR PRN #30 tablet 12/02/21 Unknown Rx Allergies Allergy/AdvReac Type Severity Reaction Status Date / Time Penicillins Allergy Swelling Verified 05/20/13 15:21 ED Review of Systems ROS: Stated complaint: TIGHNESS IN CHEST/SWELLING IN RT ARM Other details as noted in HPI Comment: All other systems reviewed and negative Constitutional: denies: chills, fever Eyes: denies: eye pain, eye discharge, vision change ENT: denies: ear pain, throat pain Respiratory: denies: cough, shortness of breath, wheezing Cardiovascular: denies: chest pain, palpitations Endocrine: no symptoms reported Gastrointestinal: denies: abdominal pain, nausea, diarrhea Genitourinary: denies: urgency, dysuria, discharge Musculoskeletal: other (right arm/shoulder pain). denies: back pain, joint swelling, arthralgia Skin: denies: rash, lesions Neurological: denies: headache, weakness, paresthesias Psychiatric: denies: anxiety, depression Hematological/Lymphatic: denies: easy bleeding, easy bruising ED Past Medical Hx - Past Medical History Hx Hypertension: Yes Hx Congestive Heart Failure: Yes Hx Diabetes: No Hx Deep Vein Thrombosis: Yes Hx Seizures: Yes Hx Psychiatric Treatment: No Hx Asthma: No Hx COPD: Yes Hx HIV: No Additional medical history: aneurysm - Surgical History Additional Surgical History: aneurysm clip, hysterectomy - Social History Smoking Status: Current Every Day Smoker - Medications Home Medications: Home Medications Medication Instructions Recorded Confirmed Last Taken Type Albuterol Mdi (or & Nicu Only) 2 puff IH QID PRN #1 inhalation 02/21/17 09/12/21 09/08/21 Rx [ProAir HFA Inhaler] Acetaminophen with Codeine 1 each PO Q6HR PRN 05/26/17 09/11/21 09/09/21 History [Acetaminophen-Codeine #2 TAB] traMADoL [Ultram 50 MG tab] 50 mg PO Q6HR PRN #7 tablet 01/03/19 09/11/21 09/09/21 Rx Albuterol Sulfate [Proventil Hfa] 2 puff IH Q4HR PRN #1 hfa.aer.ad 07/05/19 09/12/21 09/02/21 Rx hydroCHLOROthiazide [HCTZ] 25 mg PO QDAY #30 07/05/19 09/11/21 09/10/21 Rx Prednisone [predniSONE 10 mg 10 mg PO .TAPER #1 tab.ds.pk 10/04/19 09/12/21 09/08/21 Rx (6-Day Pack, 21 Tabs)] Phenytoin [Dilantin] 300 mg PO DAILY 01/21/20 09/11/21 09/10/21 09:00 History Aspirin EC [Halfprin EC] 81 mg PO QDAY #30 tablet.dr 09/13/21 Unknown Rx AtorvaSTATin [Lipitor] 20 mg PO QHS #30 tab 09/13/21 Unknown Rx Nicotine [Habitrol] 14 mg TD QDAY #30 patch 09/13/21 Unknown Rx Phenytoin [Dilantin] 300 mg PO HS #30 capsule.er 09/13/21 Unknown Rx oxyCODONE /ACETAMINOPHEN [Percocet 1 tab PO DAILY PRN #7 09/13/21 Unknown Rx 5/325] Ibuprofen [Motrin] 800 mg PO Q8HR PRN #30 tablet 12/02/21 Unknown Rx ED Physical Exam - General Limitations: No Limitations General appearance: alert, in no apparent distress - Head Head exam: Present: atraumatic, normocephalic - Eye Eye exam: Present: normal appearance, PERRL, EOMI - ENT ENT exam: Present: mucous membranes moist - Neck Neck exam: Present: normal inspection - Respiratory Respiratory exam: Present: normal lung sounds bilaterally. Absent: respiratory distress - Cardiovascular Cardiovascular Exam: Present: regular rate, normal rhythm. Absent: systolic murmur, diastolic murmur, rubs, gallop - GI/Abdominal GI/Abdominal exam: Present: soft, normal bowel sounds. Absent: distended, tenderness - Extremities Exam Extremities exam: Present: normal inspection, other (Mild swelling to the right upper extremity) - Back Exam Back exam: Present: normal inspection - Neurological Exam Neurological exam: Present: alert, oriented X3, CN II-XII intact. Absent: motor sensory deficit - Psychiatric Psychiatric exam: Present: normal affect, normal mood - Skin Skin exam: Present: warm, dry, intact, normal color. Absent: rash ED Course Vital Signs 12/02/21 12/02/21 12/02/21 10:44 11:31 11:45 Temperature 98.3 F Pulse Rate 72 65 Respiratory 24 20 Rate Blood Pressure 170/113 120/70 O2 Sat by Pulse 97 99 98 Oximetry 12/02/21 12/02/21 12/02/21 12:01 12:15 12:31 Temperature Pulse Rate 69 65 65 Respiratory 19 19 16 Rate Blood Pressure 122/69 122/69 118/76 O2 Sat by Pulse 98 98 98 Oximetry 12/02/21 12/02/21 12/02/21 12:46 13:04 13:15 Temperature Pulse Rate 66 63 64 Respiratory 16 16 17 Rate Blood Pressure 118/76 118/76 118/76 O2 Sat by Pulse 98 100 97 Oximetry 12/02/21 12/02/21 12/02/21 13:31 13:45 14:01 Temperature Pulse Rate 69 64 68 Respiratory 17 20 19 Rate Blood Pressure 118/76 118/76 118/76 O2 Sat by Pulse 98 98 99 Oximetry 12/02/21 14:15 Temperature Pulse Rate 61 Respiratory 21 Rate Blood Pressure 128/82 O2 Sat by Pulse 97 Oximetry ED Medical Decision Making - Lab Data Result diagrams: 12/02/21 Unknown 12/02/21 Unknown Lab Results 12/02/21 12/02/21 12/02/21 Range/Units 15:37 Unknown Unknown WBC 6.0 (4.5-11.0) K/mm3 RBC 5.13 H (3.65-5.03) M/mm3 Hgb 11.6 (10.1-14.3) gm/dl Hct 36.5 (30.3-42.9) % MCV 71 L (79-97) fl MCH 23 L (28-32) pg MCHC 32 (30-34) % RDW 16.1 H (13.2-15.2) % Plt Count 144 (140-440) K/mm3 Lymph % (Auto) 46.2 H (13.4-35.0) % [place] % (Auto) 6.5 (0.0-7.3) % Eos % (Auto) 5.8 H (0.0-4.3) % Baso % (Auto) 1.9 H (0.0-1.8) % Lymph # (Auto) 2.8 (1.2-5.4) K/mm3 [place] # (Auto) 0.4 (0.0-0.8) K/mm3 Eos # (Auto) 0.4 (0.0-0.4) K/mm3 Baso # (Auto) 0.1 (0.0-0.1) K/mm3 Seg Neutrophils % 39.6 L (40.0-70.0) % Seg Neutrophils # 2.4 (1.8-7.7) K/mm3 PT 14.3 (12.2-14.9) Sec. INR 1.00 (0.87-1.13) APTT 25.0 (24.2-36.6) Sec. Sodium (137-145) mmol/L Potassium (3.6-5.0) mmol/L Chloride (98-107) mmol/L Carbon Dioxide (22-30) mmol/L Anion Gap mmol/L BUN (7-17) mg/dL Creatinine (0.6-1.2) mg/dL Estimated GFR ml/min BUN/Creatinine Ratio % Glucose (65-100) mg/dL Calcium (8.4-10.2) mg/dL Total Bilirubin (0.1-1.2) mg/dL AST (5-40) units/L ALT (7-56) units/L Alkaline Phosphatase (35-129) units/L Troponin T 0.020 (0.00-0.029) ng/mL NT-Pro-B Natriuret Pep (0-900) pg/mL Total Protein (6.3-8.2) g/dL Albumin (3.9-5) g/dL Albumin/Globulin Ratio % 12/02/21 12/02/21 Range/Units Unknown Unknown WBC (4.5-11.0) K/mm3 RBC (3.65-5.03) M/mm3 Hgb (10.1-14.3) gm/dl Hct (30.3-42.9) % MCV (79-97) fl MCH (28-32) pg MCHC (30-34) % RDW (13.2-15.2) % Plt Count (140-440) K/mm3 Lymph % (Auto) (13.4-35.0) % [place] % (Auto) (0.0-7.3) % Eos % (Auto) (0.0-4.3) % Baso % (Auto) (0.0-1.8) % Lymph # (Auto) (1.2-5.4) K/mm3 [place] # (Auto) (0.0-0.8) K/mm3 Eos # (Auto) (0.0-0.4) K/mm3 Baso # (Auto) (0.0-0.1) K/mm3 Seg Neutrophils % (40.0-70.0) % Seg Neutrophils # (1.8-7.7) K/mm3 PT (12.2-14.9) Sec. INR (0.87-1.13) APTT (24.2-36.6) Sec. Sodium 143 (137-145) mmol/L Potassium 4.0 (3.6-5.0) mmol/L Chloride 109.8 H (98-107) mmol/L Carbon Dioxide 22 (22-30) mmol/L Anion Gap 15 mmol/L BUN 12 (7-17) mg/dL Creatinine 0.9 (0.6-1.2) mg/dL Estimated GFR > 60 ml/min BUN/Creatinine Ratio 13 % Glucose 115 H (65-100) mg/dL Calcium 8.7 (8.4-10.2) mg/dL Total Bilirubin 0.20 (0.1-1.2) mg/dL AST 22 (5-40) units/L ALT 20 (7-56) units/L Alkaline Phosphatase 74 (35-129) units/L Troponin T 0.018 (0.00-0.029) ng/mL NT-Pro-B Natriuret Pep 156.6 (0-900) pg/mL Total Protein 6.7 (6.3-8.2) g/dL Albumin 3.6 L (3.9-5) g/dL Albumin/Globulin Ratio 1.2 % - EKG Data -: EKG Interpreted by Me EKG shows normal: sinus rhythm Rate: normal - EKG Data 12/02/21 17:48 Nonspecific T wave abnormalities - Radiology Data Radiology results: report reviewed - Medical Decision Making Discussed results with patient Discussed application of warm compress to right arm for the thrombophlebitis Critical care attestation.: If time is entered above; I have spent that time in minutes in the direct care of this critically ill patient, excluding procedure time. ED Disposition Clinical Impression: Thrombophlebitis arm, Nonspecific chest pain Disposition: HOME / SELF CARE / HOMELESS Is pt being admited?: No Does the pt Need Aspirin: No Condition: Stable Instructions: Nonspecific Chest Pain, Adult, Phlebitis, Phlebitis, [id number] Additional Instructions: return if worse Referrals: RAIN FERNANDEZ MD [Staff Physician] - 3-5 Days FRANCESCO OSMAN MD [Staff Physician] - 3-5 Days Time of Disposition: 17:50
[2021-12-02 12:17] LABS: Basophils # (Auto) 0.1 K/mm3 (0.0-0.1); Basophils % (Auto) 1.9 % (0.0-1.8); Eosinophils # (Auto) 0.4 K/mm3 (0.0-0.4); Eosinophils % (Auto) 5.8 % (0.0-4.3); Hematocrit 36.5 % (30.3-42.9); Hemoglobin 11.6 gm/dl (10.1-14.3); Lymphocytes # (Auto) 2.8 K/mm3 (1.2-5.4); Lymphocytes % (Auto) 46.2 % (13.4-35.0); Mean Corpuscular HGB Conc 32 % (30-34); Mean Corpuscular Volume 71 fl (79-97); Monocytes # (Auto) 0.4 K/mm3 (0.0-0.8); Monocytes % (Auto) 6.5 % (0.0-7.3); Platelet Count 144 K/mm3 (140-440); Red Blood Count 5.13 M/mm3 (3.65-5.03); Red Cell Distribution Width 16.1 % (13.2-15.2)
[2021-12-02 12:48] LABS: Alanine Aminotransferase 20 units/L (7-56); Albumin 3.6 g/dL (3.9-5); BUN/Creatinine Ratio 13; Blood Urea Nitrogen 12 mg/dL (7-17); Calcium 8.7 mg/dL (8.4-10.2); Hemolysis Index 46
--- NOTE | 2021-12-02 13:07 | Vascular Lab Report ---
DUPLEX DOPPLER UPPER EXTREMITY VENOUS, RIGHT INDICATION / CLINICAL INFORMATION: arm pain/swelling. TECHNIQUE: Duplex doppler imaging was performed through the veins of the right upper extremity using venous compression and other maneuvers. COMPARISON: None available. FINDINGS: RIGHT INTERNAL JUGULAR VEIN: Negative. RIGHT SUBCLAVIAN VEIN: Negative. RIGHT AXILLARY VEIN: Negative. RIGHT BRACHIAL VEIN: Negative. RIGHT FOREARM VEINS: Negative. RIGHT CEPHALIC VEIN (SUPERFICIAL): Positive ADDITIONAL FINDINGS: None. IMPRESSION: 1. No sonographic evidence for DVT. 2. Positive for superficial venous thrombosis in the right cephalic vein at the antecubital fossa. Signer Name: Ian Petty Jr, MD Signed: 12/02/2021 1:02 PM Workstation Name: [id number]
[2021-12-02 18:28] VITALS: BP 132/67
--- NOTE | 2021-12-03 10:04 | Electrocardiograph Report ---
[facility] Test Date: 2021-12-02 Test Time: 11:05:20 Pat Name: CRISTINO DEY Department: Room: Gender: F [facility] Teacher: ANDRAE : 1965 Requested By: ED DOC Order Number: [id number] Reading MD: Evgeny Paulson Measurements Intervals [place] Rate: 69 P: 42 NE: 147 QRS: 63 QRSD: 87 T: 84 QT: 403 QTc: 433 Interpretive Statements Sinus rhythm Low voltage, precordial leads Nonspecific T abnormalities, lateral leads Compared to ECG 09/12/2021 06:58:05 T-wave abnormality now present Electronically Signed On 12-03-2021 10:03:52 EDT by Evgeny Paulson
== END 2021-12-02 18:15 | disposition home or self-care (01) ==
LOC: ED 10:36
DX: I80.8 Phlebitis and thrombophlebitis of other sites (principal); R07.9 Chest pain, unspecified; I11.0 Hypertensive heart disease with heart failure; I50.9 Heart failure, unspecified; R56.9 Unspecified convulsions; J44.1 Chronic obstructive pulmonary disease with (acute) exacerbation; Z88.0 Allergy status to penicillin; F17.200 Nicotine dependence, unspecified, uncomplicated; Z79.899 Other long term (current) drug therapy
CPT/HCPCS: 36415; 71046; 80053; 83880; 84484; 85025; 85610; 85730; 93005; 99284; J3490; Q0162